=== PATIENT | female | born 1950 | race Caucasian/White ===

== ENCOUNTER 2021-11-22 04:44 | Outpatient (CLI) | payer MEDICARE, MEDICAID, SELFPAY ==
[2021-11-22] MEDS: Albuterol HFA 18 GM 200 PUFF INH IH (16:09)
[2021-11-22] MEDS: Inhaler, Assist Device 1 EACH MC (16:09)
== END 2021-11-22 04:45 | disposition home or self-care (01) ==
LOC: RT 04:44
PROVIDERS: PCP Physician Assistant Medical; Visit Provider Student in an Organized Health Care Education/Training Program
DX: J44.9 Chronic obstructive pulmonary disease, unspecified (principal); R06.09 Other forms of dyspnea; R06.2 Wheezing; Z87.01 Personal history of pneumonia (recurrent); Z87.891 Personal history of nicotine dependence; J98.4 Other disorders of lung
CPT/HCPCS: 94060; 94618; 94726; 94729

== ENCOUNTER 2021-11-22 12:36 | Emergency (ER) | payer MEDICARE, MEDICAID, SELFPAY ==
--- OUTSIDE RECORDS SUMMARY | 2021-11-22 12:45 | XMS_ITS | Encounter Summary ---
:1950 Author Care Team Providers Name Role Phone Dayana Steinerjose Primary Care Provider [phone] [facility] OTHER [phone] Katia Aaron, sole conditioner Unavailable Heber Way MD General Surgeon [phone] Pillo Carter General Surgeon [phone] Reason for Visit SLEEP CLINIC Follow-Up CPAP/BIPAP Therap y Assessment and Plan Assessment Note I provided greater than 20 minutes in th e care of this patient, more than half the time was spent in [id number] counseling. 1. Obstructive sleep apnea syndr ome Mild Obstructive Sleep Apnea s evere in REM, CPAP was tried and failed, residual hypoxemia and no optimal pressure found on CPAP; Medical history include COPD, diabetes, GERD and morbid obesity (BMI 40) 04/22/2004: PSG Mild, RDI 7/hr 2003 to 2018: cpap 10cm on outdated mach ine without apap featuer 03/22/18: order new machine AutoBIPAP Imax 16 Maurice 8 PS 4, to reflect titration sleep study results. 06/05/18: AHI reduced to 1.8/hr, there i s increased mask leak and pressure does reach max levels with residual snoring. encouraged her to change her masks more frequently. 10/10/18: tx AHI 1.7/hr, continue same pr essure. very high VS index suspected due to poor maintenance of mask/machine. she thinks her sleep quality is better than usual. encouraged her to keep changing f ilters and mask cushions to keep machine functioning optimally. asked KMP to help her with filter change. 09/24/19: tx AHI 1.4/hr, cont same pressur e, get more regular mask supplies which should improve high leak seen on last month's bipap data 04/14/21: has registered machine for reca ll. tried to not use her machine but could not sleep for 2 nights. so went back to using it. she has health concerns lois since recently had unilateral nephrectomy for suspected neoplasm. advised her to inform cashier gambling via recall phone number line that she needs expedited. we had zoom visit. unfortunately her machine is NOT connected to internet so unable to review data. asked her to bring the SD card 08/31/2021: Patient was recently hospital ized for atypical pneumonia, appears to be recovering well. Notes she has gotten her first COVID shot and is getting a second 1 soon. She actually quit smoking du e to fear of breathing issues associated with this pneumonia and I encouraged her to continue with this. Her machine data shows excellent compliance and resolution at auto BiPAP iMax 16 Maurice 8 pressure support 4 with AHI reduction of 3.2/h. I recommend continue the same pressure setting. Given recent pneumonia and last titration study being over 5 years ago, we will do a overnight oximetry with her Bi PAP therapy at home to rule out residual nocturnal hypoxemia. She also change insurances so we will ne ed to change DME company, sending prescription now for transition. 10/20/2021: Patient is still working on [employer] a [employer] that is in network with her new insurance. She is using [facility] but there telling her that she needs a jzyz-st-duod visit. Which we are doing today. She continues to use and benefit her machine, but she does need a new machine replacement. She is not able to use her mask because it is in such poor shape, so I gave her a AirFit F20 small to try at home. current mask: mirage quattro small ffm masks tried: airfit f20 medium ? noninvasive ear or pulse o ximetry by continuous overnight monitoring (PROC) - PLEASE FAX THIS TO AGAT[facility] TSANG ON [place] [x] Obtain overnight oximetry on Auto bipap imax 16 maurice 8 ps 4cm and ROOM AIR ? auto-Pap equipment ? sleep apnea: care instruct ions 2. Periodic limb movement disord er Periodic Limb Movement Disord er: elevated PLMA index at bipap titration study in 09/12/2015, but coincided with GI bleed at that time. ? RLS vs. peripheral neuropathy. Vit 12 on low end of n ormal at 429 01/2018 and Ferritin improve d from 8 in 12/2017 to 38ng/mlg 01/201803/22/18: monitor after starting bipap 06/05/18: she does not complain of this per se, but I do notice pattern of on/off bipap usage throughout night suggesting sleep fragmentation. she is also having iron replacement therapy, managed via he r PCP. will treat leg cramps with Magnes ium to see if it helps also. : does not move her legs much per her roommate. no restless legs currently. able to stretch her muscles. 09/24/19: using counter pressure (machine) for legs (from catalog for restless legs) massages her legs and it helps. she has very bad leg cramps and low Mag at 1.5 about a year ago, advised her to re-star t Magnesium. She also wants to try gabap entin, which is reasonable given her comorbid neuropathy. Cr at 0.7. no renal adjustment. discussed common side efx, expected time to see benefit, and titration plan. 12/09/19: no side efx w/ gabapentin 100mg bid, some benefit to her leg pains/restlessness. will inc to 200mg bid, with short interval follow up 2 weeks. 04/14/21: decided to stop gabapentin poli she didnt want to take so many pills and worried they may be making her drowsy. she does get restless sleep currently while sleeping but would not want to go on it. 3. Psychophysiologic insomnia multifactorial, pcp put her on zolpidem 10mg PRN. she takes this intermittently. also lifestyle/variable schedules. she is trying to exercise/walk more during day which helps. also the variabl e schedule works for her okay, she does not work. 06/05/18: continue to monitor. avg 7h2m on bipap and she has no complaints of worsening insomnia. 10/10/18: avg 7h25m on bipap and reports no issues falling asleep, waking up 2 to 3 times most nights, which is better than her previous, sleeping longer, also sleeping in afternoon 2 to 3 hours. 09/24/19: avg 8h44m tho wakes up to urinat e 2 to 3 times. only napping very occ now, was doing more regular before. she gets zolpidem uses PRN, rx'ed by PCP 04/14/21: she had insomnia when trying to be off bipap due to recall but doing better on bipap machine. she does use zolpidem rx'ed by her pcp 4. Cramp in lower limb associate d with sleep 06/05/18: start mg gluconate 5 00mg 1 to 2 times daily for leg/muscle cramps. d/w side efx including diarrhea. 10/10/18: got the runs on 1 tab in evenin g, will reduce to 1/2 tab in evenning, as taking Mg did help with her muscle cramps, just couldnt tolerate side efx 09/24/19: Mg low but she is not willing to take supplements, will restart as above. think RLS is partly due to mvmt from cramps. 04/14/21: unclear if she ever tried the m agnesium after last time but she doesnt want to be on it. 08/31/21: She does have low magnesium fro m the 2018 blood work and has not had follow-up on this since. She did not want to be on p.o. magnesium when I had offered this to her. She does have a follow-up with her primary care practitioner and i t does appear that magnesium is one of the issues that will be addressed. 5. Smoker 08/31/2021: Last cig on 021 right before going to hospital for pna. has not had cig since! when she gets craving she will distract herself I encourage patient to continue abstaini ng from smoking. She is very motivated. She did not express wanting nicotine replacements or any medications to help. She has good social support to do this. Discussion Note Remember to always take precautio ns on drowsy driving. If you experience sleepiness while driving, find a safe area to frame pulley mortising machine operator and take a break. Research suggests taking a power nap (15 to 20 mukesh clark) and/or coffee (or caffeine containi ng food such as dark chocolate) may be effective aides. As always, you should use your judgement on whether to drive at all, if you are sleep deprived or feeling sleepy. Thank you for the kind opportunity to pa rticipate in your medical care. You expressed good understanding of your diagnosis and treatment, and agreed to proceed with the plan we discussed together. If yo u have any questions or concerns prior t o your next appointment, please call Sleep Clinic. Plan of Care Patient Instructions 1 year follow up, sooner if needed Reminders Provider Appointments Follow up 40 12/13/2021 Me roberto carlos Whaley 1:40PM SANTI Garcia ? Return to on or around Jeffery Webster MD, Office 08/31/2022 Board Certified Sleep Physician Lab None ? ? recorded. Referral None ? ? recorded. Procedures Noninvasive 10/20/2021 [facility] Ear or Pulse Oximetry by Continuous Overnight Monitoring (PROC) Surgeries None ? ? recorded. Imaging None ? ? recorded. Medications Name Start Date ? ? albuterol sulfate HFA 90 mcg/actuation aerosol inhaler ? Inhale 2 puffs every 4 hours by inhalation route as n eeded for 30 days. Ambien 10 mg tablet ? Take 1 tablet every day by oral route at bedtime for 90 days. Aspirin Low Dose 81 mg tablet,delayed release 08/18/20 21 Take 1 tablet every day by oral route. clotrimazole 1 % topical cream 08/18/2021 1 application twice a day by topical route as needed . Diflucan 200 mg tablet ? Take 1 tablet every day by oral route as needed for 3 days. Doxycycline 100 mg capsule ? Take 1 capsule twice a day by oral route for 5 days. FreeStyle Lite Strips ? Take 1 strip 3 times a day by miscell. route. garlic 1,000 mg capsule 08/18/2021 Take 1 capsule every day by oral route. Humalog KwikPen (U-100) Insulin 100 unit/mL subcutaneo us ? Inject 30 units 3 times a day by subcutaneous route f or 30 days. Jardiance 10 mg tablet ? Take 1 tablet every day by oral route for 90 days. levothyroxine 175 mcg tablet 08/18/2021 1 tablet every day by oral route. Monistat 7 2 % vaginal cream ? Insert 1 applicatorful every day by vaginal route for 7 days. mupirocin calcium 2 % topical cream 08/18/2021 Apply 1 application 3 times a day by topical route. Narcan 4 mg/actuation nasal spray 08/18/2021 Take 1 spray as needed by nasal route. Nexium 40 mg capsule,delayed release 08/18/2021 1 capsule every day by oral route. oxycodone-acetaminophen 5 mg-325 mg tablet ? Take 2 tablets 3 times a day by oral route for 28 day s. prednisone 20 mg tablet 12/17/2021 Take 2 tablets every day by oral route for 5 days. Premarin 0.625 mg/gram vaginal cream ? Rub small amount onto vulva Q other day prn. Stiolto Respimat 2.5 mcg-2.5 mcg/actuation solution fo r inhalation 12/17/2021 Inhale 2 puffs every day by inhalation route. Tresiba FlexTouch U-200 insulin 200 unit/mL (3 mL) sub cutaneous pen 10/21/2021 Inject 130 units every day by subcutaneous route for 30 days. Notes: [facility] rec [facility] 08/10/2021 Rena Thompson, binduD Medications Administered None recorded. Vitals Height 5 ft 3 in Results Lab Results None recorded. Allergies Code Code System Name Reaction Severity Onset 847824 RxNorm Bactrim Rash Moderate 03/14/2019 Sulfa (Sulfonamide Itching Mild 2021 Antibiotics) Penicillins Dizziness ? ? ? Nausea ? ? Problems Name Status Onset Date Source ? Type II Diabetes Mellitus Uncontrolled Active 9 ? 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 Diabetes Mellitus Impairment of Balance Active 03/10/2020 ? Upper Gastrointestinal Bleeding Active 04/08/2020 ? Computed Tomography Result Abnormal Active 08/03/2020 ? Hydroureteronephrosis Active 08/09/2020 ? Hypertensive Disorder Active 08/30/2020 ? Stabbing Pain Active 10/02/2020 ? Total Excision of Left Kidney Active 10/29/2020 ? Left Oophorectomy Active 10/29/2020 ? Primary Malignant Neoplasm of Renal Active 11/05/2020 ? 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 Gastroesophageal Reflux Disease without Active 06/01/20 21 ? Esophagitis Insomnia Active 08/18/2021 ? Spasm Active 08/26/2021 ? Dyspnea on Exertion Active 09/20/2021 ? Hypothyroidism Active ? History Vitamin B Deficiency Active ? History Hyperlipidemia Active ? History Severe Obesity Active ? History Nicotine Dependence Active ? History Psychophysiologic Insomnia Active ? Histo ry Obstructive Sleep Apnea Syndrome Active ? History Periodic Limb Movement Disorder Active ? History Chronic Obstructive Lung Disease Active ? History Kidney Stone Active ? History Shoulder Joint Pain Active ? History Low Back Pain Active ? History Generalized Aches and Pains Active ? Hist ory Procedures Date Name Performed by ? 10/19/2020 Ureterectomy Information not avai lable Notes: Per [facility] [place]- left nephro ure terectomy 01/04/2017 Colonoscopy Information not avai lable 08/21/1973 Tubal Ligation Information not avai lable Notes: stent placements December 08 partial hysterectomy in 2001, ovaries le ft in place, uterus and cervix removed. Vaccine List Vaccine Type COVID-19, mRNA, LNP-S, PF, 100 mcg/0.5 m L dose (Moderna) 08/11/2021 09/08/2021?0.5 mL pneumococcal conjugate PCV 13 07/04/2019?0.5 mL pneumococcal polysaccharide PPV23 09/17/2012 06/23/2014 Social History Tobacco Smoking Status Former Smoker Notes: quit Are you currently employed? N Have you used IV drugs? N Are you blind or do you have N Notes: r eading glasses, eye difficulty seeing? exam 01/28/20 diabetic retinopathy noted at exam Do you have smoke and carbon Y monoxide detectors in your home? What is your code status? 0 In the 14 days before symptom N onset, have you had close contact with a person who is under investigation for COVID-19 while that person was ill? How much tobacco do you chew? none What was the date of your most 11/10/2021 recent tobacco screening? Do you have an advanced Y directive? Do you feel safe at home? Y Do you use any illicit or N recreational drugs? How many years have you smoked 55 tobacco? In the 14 days before symptom N onset, have you had close contact with a laboratory-confirmed COVID-19 while that case was ill? What is your level of alcohol None consumption? Live alone or with others? with others Did the fall result in an injury? N Animal exposure? Y Notes: dog Do you have any pets? N Have you been to an area known to N be high risk for COVID-19? Language Difficulties No What is your current pack years? 30ormorepackyears Are you deaf or do you have N serious difficulty hearing? Are you passively exposed to N smoke? Hard of hearing or deaf in one or N both ears? Do you or have you ever used any N other forms of tobacco or nicotine? What is your level of caffeine Moderate Notes: 2-3 cups coffee consumption? daily, 1 can soda Have you recently traveled N abroad? Are there any guns present in N your home? Have you fallen in the last 3 N months? Family History Relation Problem Onset Age of Age Notes Father Diabetes mellitus (No Information) N/A (No No clark) Father Kidney stone (No Information) N/A He had the m all the time. Mother Diabetes mellitus (No Information) N/A (No No clark) Sister Diabetes mellitus (No Information) N/A (No No clark) Sister Kidney stone (No Information) N/A x 1 Brother Diabetes mellitus (No Information) N/A (No No clark) Son Kidney stone (No Information) N/A several ove r winter 9 Functional Status No Impairment. Past Encounters 10/20/2021 Obstructive Sleep Apnea Syndrome; Period ic Limb Movement Disorder; Psychophysiologic Insomnia; Cramp in Lower Limb Associated with Sleep; Smoker Jeffery Webster MD, Board Certified Sleep Ph ysician: [address] [place] [phone], Ph. 10/18/2021 Hypoglycemia Unawareness Due to Type 2 D iabetes Mellitus; Chronic Obstructive Lung Disease; Type II Diabetes Mellitus Uncontrolled; Candidiasis of Vagina; Atrophic Vaginitis DARYL KellyC: [address] [place] [phone], Ph. History of Present Illness Note: <p>Renee Mendez is a pleasant 71-year-old woman with obstructive sleep apnea, obesity, COPD, diabetes, GERD and morbid obesity who presents for bipap machine follow up.</p><div>
</div><p><strong>PREVIOUS SLEEP EVALUATION: </strong></p><p>Diagnostic polysomnogram on May 12, 2004 revealed mild obstructive sleep apnea with RDI: 7/hr., REM related RDI: 34/hr., Ghassan oxygen saturation 68% on room air (with 14% of sleep study below SPO2 90%). Patient presented for reevaluation on May 28, 2015 where she reported that she has beenusing CPAP 8 cm/H2O. She has never had a titration sleep study but she did report difficulties with frequently disrupted nocturnal sleep and feels her sleep quality is extremely poor overall. Consequently I recommend she undergo a titration polysomnogram which was performed May 28, 2015. Titration was performed from CPAP 5 to 14 cm/H2O. Unfortunately no optimal pressure was observed for the treatment of MARY ANN in supine position including in non-REM and REM sleep. CPAP 5-8 cm/H2O adequately resolvedher MARY ANN in lateral position with good oxygen saturation in non-REM sleep. CPAP 13 cm/H2O partially resolved MARY ANN in lateral REM sleep. Higher pressures (CPAP greater than 8 cm/H2O) were associated with numerous hypopneas. Mask leak was significant. She was also observed to have nocturnal hypoxemia withnadir oxygen saturation of 79% on room (18.3 minutes with oxygen saturation below 88%).</p><div>
</div><p>Patient was seen on 07/30/2015, with plan to switch to BIPAP due to persistent CPAP difficulties. BIPAP Titration Polysomnogram on 09/12/2015 (wt 225 lbs/bmi 38.6) s howed best tested pressure at BIPAP 14/10cm which reduced AHI to 2.7/hr with adequate oxygenation maintained. Lateral NREM and REM, and supine NREM were observed at this pressure. Nocturnal hypxemia observed with CPAP has resolved with BIPAP therapy. Arousal index 15/hr. PLM index 21.7/hr. PLM Arousalindex 7.4/hr. No significant arrhythmias, Abner-Hamilton Respirations, parasomnias, or abnormalities on limited EEG montage.</p><div>
</div><p>Patient was then lost to follow-up after cancelling appointments, had not gone over results of BiPAP titration.</p><div>
</div><p>On 12/28/17, ordered new bipap machine Auto BIPAP Imax 16, Maurice 8,PS 4cm, however patient was not due for machine yet until Feb 2018, so unable to obtain then.</p><div>
</div><p>Finally visit on 03/22/18, machine order for auto bipap imax 16 maurice 8 ps 4cm was made again to [facility]. Last visit on 06/05/18, she was doing well with her new machine, but having trouble with supplies and changing filters and I showed her how to do this.</p&gt ;<div>
</div><p><strong>TODAY: On auto bipap imax 16 maurice 8 ps 4cmh2O via mirage quattro small full face mask </strong></p><p>see A&P for detai ls</p><div>
</div><div>Patient switched insurances has not been able to get supplies from [facility] since. She was not aware to change her insurance with a cane, and did not know that [facility] likely does not take her current insurance [employer]</div><div>We did sendthe CPAP new machine order [facility], they called patient to tell her that she is not in network with them. Then her orders were sent to [facility] but they said that they needed a [id number] visit again. </div>Review of Systems: ROS as noted in the HPI Review of Systems None recorded. Physical Exam ? Notes: <p>GENERAL: </p><div>{{chron ically ill appearing well appearing#}}, appearing {{older than younger than st ated#}} age, no acute distress, {{normal tall lean obese#}} build</div><div>HEENT: atraumatic skull, anicteric</div><div>RESPIRAT ORY: quiet respiration, able to speak in full sentences without dyspnea, n o accessory muscle use,</div><div>SKIN: no facial skin rash, no facial skin le sions</div><div>PSYCHIATRIC: well groomed, fluent speech, good insight, linear thought process, good eye contact, {{flat balanced#}} affect</d iv><div>NEUROLOGIC: alert, oriented, symmetric facial expression</div><div> BP: measured several times, as above</div><div>
</div><d iv>
</div><p><strong>Clinical Data Reviewed:</strong></p><div>< br></div><p>1. </p><div>{{Modified Pediatric [place] Sleepiness Scale Epw orth Sleepiness Scale*}}: 2 out of {{21 due to not driving 24#}}.</div><div>
</div><div>2. {{Sleep study results not available, requested Unable to obtain sleep study reports No sleep study reports Sleep study results as above.#}}</div><div>
</div><div>3. Machine Download Data:</div><div>{{R esmed AirSense 10 Auto CPAP Resmed AirSense 10 Auto BIPAP Respironics Dream station Auto CPAP Respironics Dreamstation Auto BIPAP*}}</div><div>PAP Se ttings: {{Auto BIPAP* CPAP BIPAP}} imax 16 maurice 8 ps 4 CmH2O</div><div>Date Ra nge: {{DATE 08/01/2021}} to {{DATE 08/30/2021}}</div><di v><strong>Days with Usage >=4 hours: </strong>{{Over 70 100*}}<st william> %</strong></div><div><strong>Avg Usage per Day Used: </strong>{{1 2 3 4 5 6 7* 8 9 10}}<strong> Hours </strong>{{0 1#}}<strong> Minutes</strong></div><div>Mean/Median Pressure: {{number___ n/a#}} cmh2O</di v><div>90th-tile/95th-tile Pressure: {{number___ 15.5/11.5#}} cmH 2O</div><div>{{Median-90th%tile Leak: Leak: Avg Time in Large Leak Daily- #} } {{Not significant Significant leak 34 minutes#}}</div><div><strong >Average AHI: </strong>{{enter 3.2#}}<strong> per hour</strong></div><div>{{No rmal flow limitation index. * Abnormal flow limitation index.}}</div><di v>{{Normal vibratory snore index. Abnormal vibratory snore index. Abnor mal vibratory snore index. elevated 35/hr, historically been high#}}</d iv><div>{{Daily details do not show significant periods at maximum pressure* Daily details shows significant periods at maximum pressure}}</div><div >
</div><div>4. {{Lab results as outlined. * Labs pending.}}. noted for low Mg at 1.5 in 10/2018. </div>
--- OUTSIDE RECORDS SUMMARY | 2021-11-22 12:45 | XMS_ITS | Encounter Summary ---
:1950 Author Care Team Providers Name Role Phone Dayana Steinerchristianaaaron Primary Care Provider [phone] [facility] OTHER [phone] Katia Aaron, retail sales vitamin consultant Unavailable Heber Way MD General Surgeon [phone] Pillo Carter General Surgeon [phone] Reason for Visit Hypoglycemia unawareness due to type 2 d iabetes mellitus; Chronic obstructive lung disease Assessment and Plan 1. Hypoglycemia unawareness due to type 2 diabetes mellitus 10/18/2021 Unchanged. Add in Ja rdiance at starting dose. We will monitor to see if she can tolerate this. 09/20/2021 Improved. Discussed. 2. Chronic obstructive lung dise ase 10/18/2021 Unchanged. To see [facility] Pulmonolgist. To see Integrated Marketing Intern per [facility] Hospitalist . Referral sent. Recent pneumonia. 3. Type II diabetes mellitus unc ontrolled 12/04/2019 She agrees to get her labs dra ellis before Mar 2020. She is scared of blood draws. ratio microalb/creat in 2018 was 92.8. Creat and BUN were normal in Jun 2019. A1C was 8.3: discussed hypoglycemia at the 12/04/2019 visit. 12/04/2019 DISCUSSED avoidance of HYPOGLY CEMIA. 09/30/2020 A1c was 9.1 Discussed diet. Discussed compliance with meds. 03/23/2021 Worsening. Taking Tresiba 120 u nits daily, Humalog sliding scale TID, 03/22/2021 No FBS and no hypoglycemia. 2 hour brenda: None. She takes it about 1 hour after rarely and the numbers are about 20 0 then. Encouraged patient to get her la bs that were ordered in December 2020 and November 2020. Encouraged her to exercise with her arms at least and pay attention to her carbs. 08/26/2020 Improving after hospitalization . She has been doing fairly well on the Humalog sliding scale, but [facility] worries that she will give up with the intensity. Patient agrees to see if 2 hour p ost prandials look good if she covers ea ch meal at Humalog 18 units. The Tresiba U-200 at 60 units is holdin g her FBS nicely without hypoglycemia. We will discuss all of these glucose readings soon. She knows that she could have a system like [facility] but she dec lines. Our nurse senior case manager will anne kinney with her. This chart says Jul 2020 was last a1C. This patient has refused labs often. We will get this at next visit here if she will allow. This patient needs a MAGNESIUM level at next draw. 09/20/2021 Worsening. Patient has been in creasing her Tresiba from 70 to 120 units the last 8 days. She also went from 18 units to 30 units on Humalog. FBS still 200-250; post prandials are about 260 - 290 usually. Refused blood draw. 10/18/2021 Unchanged. Add in Jardiance at starting dose. We will monitor to see if she can tolerate this. ? empagliflozin 10 mg tablet 4. Candidiasis of vagina 10/18/2021 New problem, but rec urrent. Treated with cream and Diflucan pill. ? Diflucan 200 mg tablet 5. Atrophic vaginitis 10/18/2021 Worsening. Try the P remarin Cream q o HS prn. ? Premarin 0.625 mg/gram vag inal cream Discussion Note: None recorded.Patient educational handouts: No information available. Plan of Care Reminders Provider Appointments Follow up 12/13/2021 Dayana Garcia, 40 1:40PM SANTI ? Return to on or around Jeffery Webster MD, Office 08/31/2022 Board Certified Sleep Physician Lab None ? ? recorded. Referral None ? ? recorded. Procedures None ? ? recorded. Surgeries None ? ? recorded. Imaging None [...] with [facility] 08/10/2021 Rena Thompson, pharmD Medications Administered None recorded. Vitals Height Weight BMI Blood Pressure 5 ft 3 in 257 lbs 2 oz 45.5 kg/m2 126/78 mm[Hg] Results Lab Results None recorded. Allergies Code Code System Name Reaction Severity Onset 240330 RxNorm Bactrim Rash Moderate 03/14/2019 Sulfa (Sulfonamide [...] Ureterectomy Information not avai lable Notes: Per [facility] note- left nephro ure terectomy 01/04/2017 Colonoscopy Information not avai lable 08/21/1973 Tubal Ligation Information not avai lable 09/20/2021 US, Echocardiogram, Transthoracic, [facility] (Internal) Complete [address] [place] [address] (Work Place) Notes: stent placements December 08 partial hysterectomy [...] 9 Functional Status No Impairment. Past Encounters 10/18/2021 Hypoglycemia Unawareness Due to Type 2 D iabetes Mellitus; Chronic Obstructive Lung Disease; Type II Diabetes Mellitus Uncontrolled; Candidiasis of Vagina; Atrophic Vaginitis Dayana Garcia PA-C: [address] [place] [phone], Ph. 09/20/2021 Type II Diabetes Mellitus Uncontrolled; Hypoglycemia Unawareness Due to Type 2 Diabetes Mellitus; Chronic Obstructive Lung Disease; Dyspnea on Exertion; Low Back Pain Dayana Garcia PA-C: [address] [place] [address], Ph. History of Present Illness Note: <div>10/18/21: patient here for a follow up for Diabetes. Patient states is not checking her blood sugars in the mornings as directed. Patient does once or twice weekly ranging from 219-240. </div><div>Patient currently administering Humalog 30 units 3 times daily & Tresiba 120 units daily.</div><div>Patient her for follow up COPD. Patient very short of breath just walking from scales to room 1. </div><div>Patient utilizing inhalers: Albuterol 90mcg and Incruse 62.5 mg.</div><div>Patient complaining of vaginal itching would like a refill on her fluconazole 200 mg tablet.</div><div>The vaginal candidiasis started last Monday and has been persistent since.</div><div>Patient has a open sore on the left lateral side of the breast would like the provider to exam.</div> Review of Systems None recorded. Physical Exam ? Comprehensive PE (female) Reported By: Patient Constitutional: General Appearance: morbidly obese. Level of Distress: no apparent distress. Ambulation: limite d ambulation Neck: Neck: trachea midline. Thyro id: symmetrical, non-tender Respiratory: Respiratory effort: dyspneic . RUL Auscultation: breath sounds normal, good air movement, c lear to auscultation except as noted. RLL Auscultation: breath branden nds normal, good air movement, clear to auscultation except as noted . ROSEMARY Auscultation: breath sounds normal, good air movement, c lear to auscultation except as noted. LLL Auscultation: breath branden nds normal, good air movement, clear to auscultation except as noted Cardiovascular: Heart Auscultation: regular rate and rhythm (RRR) Gastrointestinal: Bowel Sounds: LLQ bowel soun ds normal, LUQ bowel sounds normal, RUQ bowel sounds normal, RLQ bow el sounds normal. Inspection and Palpation: LLQ tenderness; 1 09/30/2019 INSTRUMENT DESIGNER: no tenderness, no masses on exam 07/30/2020 an d this correlates to the recent CT done at [facility] ER. + hydroureterone phrosis Female : External genitalia: ; dry an d somewhat shiny labia. No lichen sclerosis noted. Minimal va ginal discharge noted. 10/18/2021 Patient left today with some Diflucan 200 mg, especially as we added in generic Jardiance a s a trial to get her insulins lower Musculoskeletal:: Gait and Station: irregular gait. Joints, Bones, and Muscles: bony deformity, tenderness Neurologic: Mental Status: ; 09/20/[address] cigarettes 10 days ago.Strident in her opposition to having her blood drawn. She refused MRI with contrast on 03/10/2020 alcira segal we wanted to check her creatinine prior to the MRI with contra st.07/30/2020 Recently at [facility] for left LQ abd - pelvic pain. BMP w as good but A1C remains very high. Sensation: grossly intact Psychiatric: Insight: poor insight; 06/02 Patient in the end did not want to make out a COLST. Explai elana that patient should tell all of her children about her wishes to not be intubated on a ventilator for any length of time and to no t have CPR or defibrillation. Discussed her tobacco depend ence. Discussed that she would have to allow CT Lung with IV contra st to fully work up any + on screening Low Dose CT Lung checks. Merle segal eventually decided that she would screen her lungs and allow w orkup of any positive findings. She would not get an MRI with co ntrast for BRAIN to check on her balance problems. Mental Sta tus: anxious Notes: <p>
</p>
--- OUTSIDE RECORDS SUMMARY | 2021-11-22 12:45 | XMS_ITS ---
:1950 Author Care Team Providers Name Role Phone [facility] OTHER [phone] MD General Surgeon [phone] LATRICIA GOLDBERG RN Care Manager Unavailable ZOYA GARCIA Primary Care Provider [phone] CJ CARTER General Surgeon [phone] Allergies Code Code System Name Reaction Severity Status Onset 341707 RxNorm Bactrim Rash Moderate Active 9 Sulfa Itching Mild Active (Sulfonamide 2 Antibiotics) Penicillins Dizziness ? Active ? ? Nausea ? Active ? Medications Name Status Start Date Stop Date ? ? albuterol sulfate HFA 90 mcg/actuation aerosol inhaler Active ? Not available Inhale 2 puffs every 4 hours by inhalation route as needed for 30 days. Ambien 10 mg tablet Active ? Not availabl e Take 1 tablet every day by oral route at bedtime for 90 days. Ambien 5 mg tablet Completed 11/18/2013 06/07/2016 1 (one) Tablet Tablet: hs PRN Aspir-81 Completed ? 05/29/2018 take 1 tablet per day aspirin 81 mg chewable tablet Completed ? Chew 1 tablet every day by oral route. Aspirin Low Dose 81 mg tablet,delayed release Active Not available Take 1 tablet every day by oral route. Aspirin Low Strength 81 mg chewable tablet Completed ? 05/29/2018 Chew 1 tablet every day by oral route. atorvastatin 80 mg tablet Completed 11/18/20132015 Take by oral route. azithromycin 250 mg tablet Completed ? 08/18 TAKE 1 TABLET (250 MG) BY ORAL ROUTE ONCE DAILY FOR 4 DAYS baclofen 10 mg tablet Completed ? 03/17/2020 benzoyl peroxide 2.5 % topical gel Completed ? 06/03/2020 BPO 6 % towelette Completed ? 09/30/2020 WASH THE AFFECTED AREA(S) BY TOPICAL RO JOSH ONCE DAILY for 90 days with supply of 100 cefpodoxime 100 mg tablet Completed ? 2017 cefpodoxime 200 mg tablet Completed ? 2021 Take 1 tablet twice a day by oral route for 5 days. cefuroxime axetil 500 mg tablet Active ? Not available cephalexin 500 mg capsule Completed ? 2019 ciprofloxacin 250 mg tablet Completed ? 03/21 ciprofloxacin 500 mg tablet Completed ? 06/21 clotrimazole 1 % topical cream Active 08/18/2021 N ot available 1 application twice a day by topical route as needed. clotrimazole 1 % vaginal cream Completed ? 0 09/20/2021 1 APPLICATORFUL INTO THE VAGINA ONCE A DAY FOR 3 DAYS Colace 100 mg capsule Completed ? 01/12/2021 Take 1 capsule twice a day by oral route as needed. cyanocobalamin (vit B-12) 100 mcg tablet Completed ? 06/15/2021 Take 1 tablet every day by oral route. Diflucan 100 mg tablet Completed 12/11/2006 7 Diflucan 200 mg tablet Active ? Not avail able Take 1 tablet every day by oral route as needed for 3 days. Doxycycline 100 mg capsule Active ? Not a vailable Take 1 capsule twice a day by oral route for 5 days. doxycycline hyclate 100 mg tablet Completed ? 06/15/2021 Take 1 tablet twice a day by oral route for 10 days. duloxetine 30 mg capsule,delayed Completed ? 03/17/2020 release Enablex 15 mg tablet,extended release Completed 07/04/2006 10/09/2006 1 (one) Tablet ER 24HR: daily ferrous sulfate 325 mg (65 mg Completed ? iron) tablet,delayed release fluconazole 150 mg tablet Completed ? 2020 FreeStyle Lancets 28 gauge Completed ? 11/06 FreeStyle Test strips Active 08/18/2021 Not availa ble Take 1 strip 3 times a day by miscell. route. furosemide 20 mg tablet Completed ? 06/15/20 21 Take 1 tablet every day by oral route for 30 days. gabapentin 100 mg capsule Completed ? 2019 gabapentin 300 mg capsule Completed ? 2019 garlic 1,000 mg capsule Active 08/18/2021 Not avai lable Take 1 capsule every day by oral route. glyburide 5 mg tablet Completed 09/06/2006 09/26/2011 1 (one) Tablet: Twice daily Humalog KwikPen (U-100) Insulin 100 unit/mL subcutaneous Active ? Not available Inject 30 units 3 times a day by subcutaneous route for 30 days . Humalog U-100 Insulin 100 unit/mL subcutaneous solution Complete d ? 12/08/2020 140-159=2 -695=1 -267=7 [id number] -869=07 [id number] [id number]=35 -522=20 units>300=18 units and notify hydrochlorothiazide 25 mg tablet Completed 11/28/2006 11/18/2013 1 (one) Tablet: daily Imodium A-D 2 mg tablet Completed ? 01/13/20 21 TAKE 2 TABLETS (4 MG) BY ORAL ROUTE AFT ER 1ST LOOSE STOOL AND 1 TABLET (2 MG) AFTER EACH NEXT BOWEL MOVEMENT; UP TO 3 TIMES DAILY Incruse Ellipta 62.5 mcg/actuation powder for inhalation Complet ed 08/18/2021 11/19/2021 Inhale 1 puff every day by inhalation route. ipratropium 0.5 mg-albuterol 3 mg (2.5 mg base)/3 mL n ebulization soln Completed 08/18/2021 09/20/2021 Inhale 3 mL every 4 hours by nebulization route as needed for 3 0 days. Jardiance 10 mg tablet Active ? Not avail able Take 1 tablet every day by oral route for 90 days. Levaquin 750 mg tablet Completed ? 2 Take 1 tablet every day by oral route for 5 days. Levemir FlexTouch U-100 Insulin Completed ? 07/15/2019 100 unit/mL (3 mL) subcutaneous pen Levemir U-100 Insulin 100 unit/mL subcutaneous solution Complete d 11/18/2013 06/07/2016 70 units Solution Solution: qd - daily levothyroxine 125 mcg tablet Completed ? 05/2021 TAKE ONE TABLET BY MOUTH EVERY DAY levothyroxine 137 mcg tablet Completed ? Take 1 tablet every day by oral route. levothyroxine 150 mcg tablet Completed ? levothyroxine 175 mcg tablet Active 08/18/2021 Not available 1 tablet every day by oral route. lidocaine 5 % topical patch Completed 11/19/201810/19 Apply 1 patch by topical route as needed for 60 days. lisinopril 10 mg tablet Completed ? 03/17/20 20 lisinopril 5 mg tablet Completed ? 8 magnesium 250 mg tablet Completed ? 11/14/19 20 Take 1 tablet twice a day by oral route in the evening for 90 d ays. magnesium gluconate 27 mg magnesium (500 mg) tablet Completed ? 03/17/2020 Take 1/2 tablet by mouth twice daily. metformin 1,000 mg tablet Completed ? 2019 metronidazole 500 mg tablet Completed ? 03/22 Miralax 17 gram/dose oral powder Completed 08/18/2021 08/26/2021 Take 17 g every day by oral route as needed. Monistat 7 2 % vaginal cream Active ? Not available Insert 1 applicatorful every day by vaginal route for 7 days. Mucinex 600 mg tablet, extended release Completed ? 11/06/2020 Take 1 tablet every 12 hours by oral route for 14 days. mupirocin Completed ? 08/18/2021 mupirocin 2 % topical ointment Completed 06/08/2021 1 APPLY A SMALL AMOUNT TO THE AFFECTED AREA BY TOPICAL ROUTE 3 TI MES PER DAY mupirocin calcium 2 % topical cream Active 08/18/2021 Not available Apply 1 application 3 times a day by topical route. Narcan 4 mg/actuation nasal spray Active 08/18/2021 Not available Take 1 spray as needed by nasal route. Nexium 40 mg capsule,delayed release Active 08/18/2021 Not available 1 capsule every day by oral route. nicotine 21 mg/24 hr daily Active ? Not a vailable transdermal patch nitrofurantoin 100 mg tablet Completed 11/19/201806/2019 Take 1 tablet twice a day by oral route. nitrofurantoin Completed ? 07/04/2019 monohydrate/macrocrystals 100 mg capsule Novolog Flexpen U-100 Insulin aspart 100 unit/mL (3 mL) subc utaneous Completed ? 05/05/2021 Inject 30 units 3 times a day by subcutaneous route for 30 days . nystatin 100,000 unit/gram topical cream Completed ? 08/18/2021 APPLY TO THE AFFECTED AREA BID prn Nystop 100,000 unit/gram topical Completed ? 04/09/2018 powder oxybutynin chloride 5 mg tablet Completed ? 09/24/2019 Take 1 tablet every day by oral route for 10 days. oxycodone 5 mg tablet Completed ? 11/18/2020 Take 1 tablet every 6 hours by oral route as needed. oxycodone-acetaminophen 5 mg-325 mg tablet Active ? Not available Take 2 tablets 3 times a day by oral route for 28 days. prednisone 10 mg tablet Completed ? 09/20/19 22 Take 6 tablets every day by oral route as directed for 18 days. prednisone 20 mg tablet Active ? Not avai lable Premarin 0.625 mg/gram vaginal cream Active ? Not available Rub small amount onto vulva Q other day prn. rosuvastatin 40 mg tablet Completed ? 2019 simvastatin 40 mg tablet Completed 06/20/2006 014 1 (one) Tablet: at bedtime Stiolto Respimat 2.5 mcg-2.5 mcg/actuation solution for inha lation Active 12/17/2021 Not available Inhale 2 puffs every day by inhalation route. sulfamethoxazole 800 Completed ? 04/02/2019 mg-trimethoprim 160 mg tablet tamsulosin 0.4 mg capsule Completed ? 2019 terconazole 0.4 % vaginal cream Completed ? 04/09/2018 terconazole 0.8 % vaginal cream Completed ? 07/04/2019 Tresiba FlexTouch U-200 insulin 200 unit/mL (3 mL) subcutane ous pen Active 10/21/2021 Not available Inject 130 units every day by subcutaneous route for 30 days. Tylenol 325 mg tablet Completed 08/18/2021 08/26/2021 Take 3 tablets every 6 hours by oral route as needed. Urocit-K 10 10 mEq (1,080 mg) tablet,extended release Completed 11/02/2006 09/26/2011 1 Tablet ER: BID vitamin E (dl, acetate) 180 mg (400 unit) capsule Completed 11/19/2018 02/04/2019 Take 1 capsule every day by oral route. Zetia 10 mg tablet Completed 06/20/2006 09/26/2011 1 (one) Tablet: Daily Notes: med rec completed with caroline morales 08/10/2021 Rena Thompson, binduD Problems Name Status Onset Date Source ? Blood in Urine Unknown 09/04/2018 ? Type II Diabetes Mellitus Uncontrolled Active 9 ? 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 Diabetes Mellitus Hypoglycemia Unawareness Due to Type 2 Active 0 ? Diabetes Mellitus Impairment of Balance Active 03/10/2020 ? Upper Gastrointestinal Bleeding Active 04/08/2020 ? Computed Tomography Result Abnormal Active 08/03/2020 ? Candidiasis of Skin Unknown 08/09/2020 ? Hydroureteronephrosis Active 08/09/2020 ? Hypertensive Disorder Active 08/30/2020 ? Stabbing Pain Active 10/02/2020 ? Total Excision of Left Kidney Active 10/29/2020 ? Left Oophorectomy Active 10/29/2020 ? Primary Malignant Neoplasm of Renal Active 11/05/2020 ? 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 Gastroesophageal Reflux Disease Active 06/01/2021 ? without Esophagitis Insomnia Active 08/18/2021 ? Pneumonia Unknown 08/18/2021 ? Spasm Active 08/26/2021 ? Dyspnea on Exertion Active 09/20/2021 ? Hypothyroidism Active ? History Disorder of Thyroid Gland Unknown ? Histor y Type 2 Diabetes Mellitus without Unknown ? History Complication Vitamin B Deficiency Active ? History Hyperlipidemia Active ? History Disorder of Calcium Metabolism Unknown ? H istory Severe Obesity Active ? History Nicotine Dependence Active ? History Psychophysiologic Insomnia Active ? Histo ry Obstructive Sleep Apnea Syndrome Active ? History Periodic Limb Movement Disorder Active ? History Asthma Unknown ? History Chronic Obstructive Lung Disease Active ? History Cholelithiasis without Obstruction Unknown ? History Kidney Stone Active ? History Disorder of Pigmentation Unknown ? History Localized Swelling, Mass and Lump, Unknown ? History Trunk Joint Pain Unknown ? History Shoulder Joint Pain Active ? History Low Back Pain Active ? History Generalized Aches and Pains Active ? Hist ory Increased Frequency of Urination Unknown ? History Nocturia Unknown ? History Lower Abdominal Pain Unknown ? History Urine Finding Unknown ? History Imaging of Abdomen Abnormal Unknown ? Hist ory Long-term Drug Therapy Unknown ? History Pain in Right Foot Unknown ? History Emotional State Finding Unknown ? History Finding of Esophagus Unknown ? History Disorder of Urinary Tract Unknown ? Histor y Procedure by Method Unknown ? History Specialized Medical Examination Unknown ? History Procedures Date Name Performed by ? 10/19/2020 Ureterectomy Information not giovanyai labmary kate Notes: Per [facility] note- left nephro ure terectomy 01/04/2017 Colonoscopy Information not avai lable 08/21/1973 Tubal Ligation Information not avai lable 05/03/2018 XR, Chest, 2 View [facility] Radiology (Internal) [address] [place] [id number] (Work Place) 07/11/2018 MAMMO, Screening, Tomosynthesis, [facility] Radiology (Internal) Bilateral [address] [address] (Work Place) 08/02/2018 CT, Abdomen + Pelvis, W/o Contrast [facility] Radiology (Internal) [address] [address] (Work Place) 02/04/2019 MAMMO, Diagnostic, Tomosynthesis, [facility] Radiology (Internal) Bilateral [address] [place] [address] (Work Place) 02/04/2019 US, Breast, Bilateral [facility] Radiology (Internal) [address] [place] [place] [address] (Work Place) 07/04/2019 MAMMO, Screening, Tomosynthesis, [facility] Radiology (Internal) Bilateral [address] [address] (Work Place) 07/04/2019 LDCT, Chest, for Lung Cancer [facility] Radiology (Internal) Screening [address] [address] [address] (Work Place) 02/18/2020 XR, Hand, 3 or More View [facility] Radiology (Internal) [address] [address] [address] (Work Place) 03/10/2020 MRI, Brain, W/wo Contrast [facility] Radiology (Internal) [address] [place] [id number] (Work Place) 06/02/2020 LDCT, Chest, for Lung Cancer [facility] Radiology (Internal) Screening [address] [place] [address] [address] (Work Place) 10/16/2020 XR, Cervical Spine [facility]) [address] [place] [address] (Work Place) 10/05/2020 CT, Chest, W/ Contrast [facility] Radiology (Internal) [address] [place] [address] (Work Place) 10/05/2020 XR, Cervical Spine, 4 or 5 View [facility] Radiology (Internal) [address] [place] [address] (Work Place) 01/12/2021 MAMMO, Screening, Tomosynthesis, [facility] Radiology (Internal) Bilateral [address] [place] [address] (Work Place) 09/20/2021 US, Echocardiogram, Transthoracic, [facility] Radiology (Internal) Complete [address] [place] [address] (Work Place) Notes: stent placements December 08 partial hysterectomy in 2001, ovaries le ft in place, uterus and cervix removed. Results Lab Results Date Name Specimen Result Interpretation Description Value Range Status Address ? 08/18/2021 CBC W/ BLD High Wbc 16.4 5.0-10.0 Final [facility] Auto Diff 10*3/uL 10*3/uL [facility] (Internal[facility] : [address] t ? ? BLD ? Rbc 5.09 4.10-5.30 Final [place] 10*6/uL 10*6/uL [facility] L ab (Internal) : [address] t ? ? BLD ? Hgb 13.5 g/dL 12.0-16.0 Final Nort h g/dL [facility] L ab (Internal) : [address] t ? ? BLD ? Hct 43.9 % 37.0-47.0 Final [place] % [facility] L ab (Internal) : [address] t ? ? BLD ? Mcv 86.2 fL 80.0-96.0 Final [facility] L ab (Internal) : [address] t ? ? BLD ? Mch 26.5 pg 26.0-32.0 Final [facility] L ab (Internal) : [address] t ? ? BLD Low Mchc 30.8 g/dL 31.0-35.0 Final Nort [facility] g/dL [facility] L ab (Internal) : [address] t ? ? BLD ? Rdw 14.3 % 11.5-14.5 Final [facility] L ab (Internal) : [address] t ? ? BLD ? Plt 194 10*3/uL 130-450 Final Nort h 10*3/uL [facility] L ab (Internal) : [address] t ? ? BLD ? Anc 10.95 ? Final [place] 10*3/uL [facility] L ab (Internal) : [address] t ? ? BLD ? Nlr 2.83 0.00-3.20 Final [facility] L ab (Internal) : [address] t ? ? BLD ? Neutro 66.7 % 40.0-75.0 Final [facility] L ab (Internal) : [address] t ? ? BLD ? Lymph 23.6 % 20.0-50.0 Final [facility] L ab (Internal) : [address] t ? ? BLD ? [place] 8.3 % 2.0-10.0 Final [facility] L ab (Internal) : [address] t ? ? BLD Low Eos 0.2 % 1.0-6.0 % Final [facility] L ab (Internal) : [address] t ? ? BLD ? Baso 0.2 % 0.0-1.0 % Final [facility] L ab (Internal) : [address] t ? ? BLD High Ig 1.0 % 0.0-0.9 % Final [facility] L ab (Internal) : [address] t 08/18/2021 BMP, S Low g/r 62 mg/dL 74-106 Final Nort [facility] Serum or mg/dL [facility] L ab (Internal) : [address] t ? ? S High Bun 34 mg/dL 7-18 Final [place] mg/dL [facility] L ab (Internal) : [address] t ? ? S ? Crea 1.0 mg/dL 0.6-1.0 Final [place] mg/dL [facility] L ab (Internal) : [address] t ? ? S ? Ca 8.9 mg/dL 8.5-10.1 Final [place] mg/dL [facility] L ab (Internal) : [address] t ? ? S ? Na 139 mmol/L 136-145 Final [place] mmol/L [facility] L [facility] (Internal) : [address] t ? ? S ? K 4.1 mmol/L 3.5-5.1 Final [place] mmol/L [facility] L ab (Internal) : [address] t ? ? S ? Cl 102 mmol/l 98-107 Final [place] mmol/l [facility] L ab (Internal) : [address] t ? ? S High Tco2 32.8 mmol/L 21.0-32.0 Final No rth mmol/L [facility] L [facility] (Internal) : [address] t 08/17/2021 CBC W/ BLD High Wbc 14.1 5.0-10.0 Final [facility] Auto Diff 10*3/uL 10*3/uL [facility] (Internal) : [address] t ? ? BLD ? Rbc 4.98 4.10-5.30 Final [place] 10*6/uL 10*6/uL [facility] L ab (Internal) : [address] t ? ? BLD ? Hgb 13.4 g/dL 12.0-16.0 Final Nort h g/dL [facility] L ab (Internal) : [address] t ? ? BLD ? Hct 42.9 % 37.0-47.0 Final [place] % [facility] L ab (Internal) : [address] t ? ? BLD ? Mcv 86.1 fL 80.0-96.[address] [place] [address] [facility] L ab (Internal) : [address] t ? ? BLD ? Mch 26.9 pg 26.0-32.[address] [place] [address] [facility] L ab (Internal) : [address] t ? ? BLD ? Mchc 31.2 g/dL 31.0-35.0 Final [facility] g/dL [facility] ([facility] : [address] t ? ? BLD ? Rdw 14.3 % 11.5-14.5 Final [facility] ([facility] : [address] t ? ? BLD ? Plt 221 10*3/uL 130-450 Final [facility] 10*3/uL [facility] ([facility] : [address] t 08/17/2021 BMP, S High g/r 199 mg/dL 74-106 Final [facility] Serum or mg/dL [facility] (Internal) : [address] t ? ? S High Bun 32 mg/dL 7-18 Final [place] mg/dL [facility] L ab (Internal) : [address] t ? ? S ? Crea 1.0 mg/dL 0.6-1.0 Final [facility] mg/dL [facility] ([facility] : [address] t ? ? S ? Ca 9.0 mg/dL 8.5-10.1 Final [facility] mg/dL [facility] ([facility]) : [address] t ? ? S ? Na 136 mmol/L 136-145 Final [place] mmol/L [facility] L ab (Internal) : [address] t ? ? S ? K 4.6 mmol/L 3.5-5.1 Final [facility] mmol/L [facility] (Internal) : [address] t ? ? S ? Cl 100 mmol/l 98-107 Final [place] mmol/l [facility] L ab (Internal) : [address] t ? ? S ? Tco2 31.5 mmol/L 21.0-32.0 Final No rth mmol/L [facility] L ab (Internal) : [address] 08/17/2021 Neutrophi BLD ? Anc-ma 12.28 ? Final No rth l Count, nual 10*3/uL [facility] Lab (Anc), (Internal) : Blood [address] 08/17/2021 Nlr-manua BLD High Nlr - 7.91 0.00-3.20 Final [facility] L [facility] (Internal) : [address] t 08/16/2021 CBC W/ BLD High Wbc 13.8 5.0-10.0 Final Nort [facility] Auto Diff 10*3/uL 10*3/uL [facility] (Internal) : [address] t ? ? BLD ? Rbc 5.12 4.10-5.30 Final [place] 10*6/uL 10*6/uL [facility] L ab (Internal) : [address] t ? ? BLD ? Hgb 13.6 g/dL 12.0-16.0 Final Nort h g/dL [facility] L ab (Internal) : [address] t ? ? BLD ? Hct 44.4 % 37.0-47.0 Final [facility] L ab (Internal) : [address] t ? ? BLD ? Mcv 86.7 fL 80.0-96.0 Final [facility] L ab (Internal) : [address] t ? ? BLD ? Mch 26.6 pg 26.0-32.0 Final [facility] L ab (Internal) : [address] t ? ? BLD Low Mchc 30.6 g/dL 31.0-35.0 Final Nort h g/dL [facility] L ab (Internal) : [address] t ? ? BLD ? Rdw 14.1 % 11.5-14.5 Final [facility] L ab (Internal) : [address] t ? ? BLD ? Plt 211 10*3/uL 130-450 Final Nort h 10*3/uL [facility] L ab (Internal) : [address] t 08/16/2021 BMP, S High g/r 189 mg/dL 74-106 Final [facility] th Serum or mg/dL [facility] L ab (Internal) : [address] t ? ? S High Bun 32 mg/dL 7-18 Final [place] mg/dL [facility] L ab (Internal) : [address] t ? ? S ? Crea 1.0 mg/dL 0.6-1.0 Final [place] mg/dL [facility] L ab (Internal) : [address] t ? ? S ? Ca 9.0 mg/dL 8.5-10.1 Final [place] mg/dL [facility] L ab (Internal) : [address] t ? ? S ? Na 136 mmol/L 136-145 Final [place] mmol/L [facility] L ab (Internal) : [address] t ? ? S ? K 4.6 mmol/L 3.5-5.1 Final [place] mmol/L [facility] L ab (Internal) : [address] t ? ? S ? Cl 100 mmol/l 98-107 Final [place] mmol/l [facility] L ab (Internal) : [address] t ? ? S ? Tco2 30.7 mmol/L 21.0-32.0 Final No rth mmol/L [facility] L ab (Internal) : [address] 08/16/2021 Different BLD High Polys 84 % 40-75 % Final No rth ial, [facility] Lab Blood (Internal) : [address] t ? ? BLD ? Bands 0 % 0-5 % Final [facility] L ab (Internal) : [address] t ? ? BLD Low Lymphs 8 % 20-50 % Final [facility] L ab (Internal) : [address] t ? ? BLD ? [place] 8 % 2-10 % Final [facility] L ab (Internal) : [address] t ? ? BLD ? Eos 0 % 0-6 % Final [facility] L ab (Internal) : [address] t ? ? BLD ? Baso 0 % 0-1 % Final [facility] L ab (Internal) : [address] t ? ? BLD ? Atyp 0 % ? Final [facility] L ab (Internal) : [address] t ? ? BLD ? Plts, adequate adequate Final [facility] L ab (Internal) : [address] t ? ? BLD ? RBC normal normal Final [facility] L ab (Internal) : [address] [facility] 08/16/2021 Neutrophi BLD ? Anc-ma 11.57 ? Final No rth l Count, nual 10*3/uL [facility] (Anc[facility] (Internal) : Blood [address] [facility] 08/16/2021 Nlr-manua BLD High Nlr - 10.50 0.00-3.20 Final [facility] Hospital L ab (Internal) : [address] [facility] 08/15/2021 BMP, S High g/r 201 mg/dL 74-106 Final [facility] [place] Serum or mg/dL [facility] (Internal) : [address] t ? ? S High Bun 28 mg/dL 7-18 Final [place] mg/dL [facility] L ab (Internal) : [address] t ? ? S High Crea 1.1 mg/dL 0.6-1.0 Final [place] mg/dL [facility] L ab (Internal) : [address] t ? ? S ? Ca 8.9 mg/dL 8.5-10.1 Final [place] mg/dL [facility] L ab (Internal) : [address] t ? ? S ? Na 140 mmol/L 136-145 Final [place] mmol/L [facility] L ab (Internal) : [address] t ? ? S High K 5.3 mmol/L 3.5-5.1 Final [place] mmol/L [facility] L ab (Internal) : [address] t ? ? S ? Cl 100 mmol/l 98-107 Final [place] mmol/l [facility] L ab (Internal) : [address] t ? ? S High Tco2 34.1 mmol/L 21.0-32.0 Final No rth mmol/L [facility] L ab (Internal) : [address] 08/15/2021 Different BLD High Polys 86 % 40-75 % Final No rth ial, [facility] Lab Blood (Internal) : [address] t ? ? BLD ? Bands 0 % 0-5 % Final [facility] L ab (Internal) : [address] t ? ? BLD Low Lymphs 11 % 20-50 % Final [facility] L ab (Internal) : [address] t ? ? BLD ? [place] 3 % 2-10 % Final [facility] L ab (Internal) : [address] t ? ? BLD ? Eos 0 % 0-6 % Final [facility] L ab (Internal) : [address] t ? ? BLD ? Baso 0 % 0-1 % Final [facility] [facility] : [address] t ? ? BLD ? Atyp 0 % ? Final [facility] L ab (Internal) : [address] t ? ? BLD ? Plts, adequate adequate Final [facility] L ab (Internal) : [address] t ? ? BLD ? RBC normal normal Final [facility] L ab (Internal) : [address] t 08/15/2021 Neutrophi BLD ? Anc-ma 10.39 ? Final No rth l Count, nual 10*3/uL [facility] Hospital Lab (Anc), (Internal) : Blood [address] t 08/15/2021 Nlr-manua BLD High Nlr - 7.82 0.00-3.20 Final [facility] L ab (Internal) : [address] t 08/14/2021 CBC W/ BLD High Wbc 10.9 5.0-10.0 Final Nort h Auto Diff 10*3/uL 10*3/uL [facility] L [facility] (Internal) : [address] t ? ? BLD ? Rbc 5.08 4.10-5.30 Final [place] 10*6/uL 10*6/uL [facility] L ab (Internal) : [address] t ? ? BLD ? Hgb 13.6 g/dL 12.0-16.0 Final Nort h g/dL [facility] L ab (Internal) : [address] t ? ? BLD ? Hct 43.7 % 37.0-47.0 Final [facility] : [address] t ? ? BLD ? Mcv 86.0 fL 80.0-96.0 Final [place] fL [facility] L [facility] (Internal) : [address] t ? ? BLD ? Mch 26.8 pg 26.0-32.0 Final [place] pg [facility] L [facility] (Internal) : [address] t ? ? BLD ? Mchc 31.1 g/dL 31.0-35.0 Final Nort [facility] g/dL [facility] (Internal) : [address] t ? ? BLD ? Rdw 13.9 % 11.5-14.5 Final [facility] ([facility] : [address] t ? ? BLD ? Plt 240 10*3/uL 130-450 Final Nort h 10*3/uL [facility] (Internal) : [address] 08/14/2021 BMP, S High g/r 327 mg/dL 74-106 Final [place] th Serum or mg/dL [facility] L [facility] (Internal) : [address] t ? ? S High Bun 33 mg/dL 7-18 Final [facility] mg/dL [facility] (Internal) : [address] t ? ? S High Crea 1.2 mg/dL 0.6-1.0 Final [facility] mg/dL [facility] (Internal) : [address] t ? ? S ? Ca 8.7 mg/dL 8.5-10.1 Final [facility] mg/dL [facility] (Internal) : [address] t ? ? S ? Na 136 mmol/L 136-145 Final [facility] mmol/L [facility] (Internal) : [address] t ? ? S ? K 4.6 mmol/L 3.5-5.1 Final [facility] mmol/L [facility] (Internal) : [address] t ? ? S ? Cl 99 mmol/l 98-107 Final [facility] mmol/l [facility] (Internal) : [address] t ? ? S ? Tco2 31.0 mmol/L 21.0-32.0 Final No rth mmol/L [facility] L ab (Internal) : [address] 08/14/2021 Different BLD High Polys 82 % 40-75 % Final No rth ial, [facility] Manual, Hospital Lab Blood (Internal) : [address] t ? ? BLD ? Bands 0 % 0-5 % Final [facility] L ab (Internal) : [address] ? ? BLD Low Lymphs 11 % 20-50 % Final [facility] L ab (Internal) : [address] t ? ? BLD ? [place] 7 % 2-10 % Final [facility] L ab (Internal) : [address] ? ? BLD ? Eos 0 % 0-6 % Final [facility] L ab (Internal) : [address] ? ? BLD ? Baso 0 % 0-1 % Final [facility] L ab (Internal) : [address] ? ? BLD ? Atyp 0 % ? Final [facility] L ab (Internal) : [address] ? ? BLD ? Plts, adequate adequate Final [facility] L ab (Internal) : [address] t ? ? BLD ? RBC normal normal Final [facility] L ab (Internal) : [address] t 08/14/2021 Neutrophi BLD ? Anc-ma 8.97 ? Final No rth l Count, nual 10*3/uL [facility] Lab (Anc), (Internal) : Blood [address] t 08/14/2021 Nlr-manua BLD High Nlr - 7.45 0.00-3.20 Final [facility] L ab (Internal) : [address] t 08/13/2021 BMP, S High g/r 124 mg/dL 74-106 Final [place] Serum or mg/dL [facility] L ab (Internal) : [address] ? ? S High Bun 32 mg/dL 7-18 Final [place] mg/dL [facility] L ab (Internal) : [address] t ? ? S ? Crea 1.0 mg/dL 0.6-1.0 Final [place] mg/dL [facility] L ab (Internal) : [address] t ? ? S ? Ca 9.2 mg/dL 8.5-10.1 Final [place] mg/dL [facility] Hospital L ab (Internal) : [address] t ? ? S ? Na 137 mmol/L 136-145 Final [place] mmol/L [facility] L ab (Internal) : [address] t ? ? S ? K 4.8 mmol/L 3.5-5.1 Final [place] mmol/L [facility] L ab (Internal) : [address] t ? ? S ? Cl 100 mmol/l 98-107 Final [place] mmol/l [facility] L ab (Internal) : [address] t ? ? S ? Tco2 30.8 mmol/L 21.0-32.0 Final No rth mmol/L [facility] Hospital L ab (Internal) : [address] t 08/13/2021 CBC W/ BLD High Wbc 13.6 5.0-10.0 Final Nort h Auto Diff 10*3/uL 10*3/uL [facility] L ab (Internal) : [address] t ? ? BLD ? Rbc 5.19 4.10-5.30 Final [place] 10*6/uL 10*6/uL [facility] Hospital L ab (Internal) : [address] t ? ? BLD ? Hgb 13.9 g/dL 12.0-16.0 Final Nort h g/dL [facility] L ab (Internal) : [address] t ? ? BLD ? Hct 44.7 % 37.0-47.0 Final [place] % [facility] L ab (Internal) : [address] t ? ? BLD ? Mcv 86.1 fL 80.0-96.0 Final [place] fL [facility] L ab (Internal) : [address] t ? ? BLD ? Mch 26.8 pg 26.0-32.0 Final [place] pg [facility] Hospital L ab (Internal) : [address] ? ? BLD ? Mchc 31.1 g/dL 31.0-35.0 Final Nort h g/dL [facility] Hospital L ab (Internal) : [address] t ? ? BLD ? Rdw 14.0 % 11.5-14.5 Final [place] [facility] L ab (Internal) : [address] t ? ? BLD ? Plt 234 10*3/uL 130-450 Final Nort h 10*3/uL [facility] L ab (Internal) : [address] t 08/13/2021 BNP S High Nt-bnp 358 pg/mL 0-125 Final No rth (B-type pg/mL [facility] Lab ic (Internal) : Peptide), [address] , [place] N-termina l, Quant, Immunoass ay, Blood 08/13/2021 Different BLD High Polys 82 % 40-75 % Final No rth ial, [facility] Lab Blood (Internal) : [address] t ? ? BLD ? Bands 0 % 0-5 % Final [facility] L ab (Internal) : [address] t ? ? BLD Low Lymphs 12 % 20-50 % Final [facility] L ab (Internal) : [address] t ? ? BLD ? [place] 6 % 2-10 % Final [facility] L ab (Internal) : [address] t ? ? BLD ? Eos 0 % 0-6 % Final [facility] L ab (Internal) : [address] t ? ? BLD ? Baso 0 % 0-1 % Final [facility] L ab (Internal) : [address] t ? ? BLD ? Atyp 0 % ? Final [facility] L ab (Internal) : [address] t ? ? BLD ? Plts, adequate adequate Final [facility] L ab (Internal) : [address] t ? ? BLD ? RBC normal normal Final [facility] L ab (Internal) : [address] 08/13/2021 Neutrophi BLD ? Anc-ma 11.17 ? Final No rth l Count, nual 10*3/uL Country [facility] Hospital Lab (Anc), (Internal) : Blood [address] 08/13/2021 Nlr-manua BLD High Nlr - 6.83 0.00-3.20 Final [place] l Manual [facility] Hospital L ab (Internal) : [address] 08/12/2021 BMP, S High g/r 165 mg/dL 74-106 Final Nor th Serum or mg/dL [facility] Plasma [facility] L ab (Internal) : [address] t ? ? S High Bun 32 mg/dL 7-18 Final North mg/dL [facility] L ab (Internal) : [address] t ? ? S ? Crea 1.0 mg/dL 0.6-1.0 Final [place] mg/dL [facility] L ab (Internal) : [address] t ? ? S ? Ca 9.2 mg/dL 8.5-10.1 Final [place] mg/dL [facility] L ab (Internal) : [address] t ? ? S ? Na 138 mmol/L 136-145 Final [place] mmol/L [facility] L ab (Internal) : [address] t ? ? S ? K 4.4 mmol/L 3.5-5.1 Final [place] mmol/L [facility] L ab (Internal) : [address] t ? ? S ? Cl 100 mmol/l 98-107 Final [place] mmol/l [facility] L ab (Internal) : [address] ? ? S ? Tco2 28.9 mmol/L 21.0-32.0 Final No rth mmol/L [facility] L ab (Internal) : [address] 08/12/2021 CBC W/ BLD High Wbc 12.8 5.0-10.0 Final Nort h Auto Diff 10*3/uL 10*3/uL [facility] L ab (Internal) : [address] t ? ? BLD ? Rbc 4.91 4.10-5.30 Final [place] 10*6/uL 10*6/uL [facility] L ab (Internal) : [address] t ? ? BLD ? Hgb 13.2 g/dL 12.0-16.0 Final Nort h g/dL [facility] Hospital L ab (Internal) : [address] ? ? BLD ? Hct 42.3 % 37.0-47.0 Final [facility] Hospital L ab (Internal) : [address] ? ? BLD ? Mcv 86.2 fL 80.0-96.0 Final [facility] Hospital L ab (Internal) : [address] ? ? BLD ? Mch 26.9 pg 26.0-32.0 Final [facility] Hospital L ab (Internal) : [address] ? ? BLD ? Mchc 31.2 g/dL 31.0-35.0 Final Nort h g/dL [facility] Hospital L ab (Internal) : [address] ? ? BLD ? Rdw 14.1 % 11.5-14.5 Final [facility] Hospital L ab (Internal) : [address] ? ? BLD ? Plt 217 10*3/uL 130-450 Final Nort h 10*3/uL [facility] Hospital L ab (Internal) : [address] t 08/12/2021 Different BLD High Polys 79 % 40-75 % Final No rth ial, [facility] Lab Blood (Internal) : [address] ? ? BLD ? Bands 0 % 0-5 % Final [facility] L ab (Internal) : [address] ? ? BLD Low Lymphs 11 % 20-50 % Final [facility] L ab (Internal) : [address] ? ? BLD ? [place] 9 % 2-10 % Final [facility] Hospital L ab (Internal) : [address] ? ? BLD ? Eos 0 % 0-6 % Final [facility] L ab (Internal) : [address] ? ? BLD ? Baso 0 % 0-1 % Final [facility] L ab (Internal) : [address] ? ? BLD ? Atyp 0 % ? Final [facility] Hospital L ab (Internal) : [address] ? ? BLD High Young 1 % 0-0 % Final [facility] L ab (Internal) : [address] ? ? BLD ? Plts, adequate adequate Final [place] [facility] Hospital L ab (Internal) : [address] t ? ? BLD ? RBC normal normal Final [place] Morphol [facility] og Hospital L ab (Internal) : [address] t 08/12/2021 Neutrophi BLD ? Anc-ma 10.14 ? Final No rth l Count, nual 10*3/uL [facility] Absolute Hospital Lab (Anc), (Internal) : Blood [address] 08/12/2021 Nlr-manua BLD High Nlr - 7.18 0.00-3.20 Final [facility] Manual [facility] Hospital L ab (Internal) : [address] 08/12/2021 Methicill NASAL ? Final microbiolog ? Final [place] in y results [facility] Lab Staphyloc (Sulfur Chloride Operator al): occus [address] [place] Culture, Nasal 08/11/2021 CBC W/ BLD High Wbc 13.1 5.0-10.0 Final Nort h Auto Diff 10*3/uL 10*3/uL [facility] L ab (Internal) : [address] ? ? BLD ? Rbc 5.11 4.10-5.30 Final [place] 10*6/uL 10*6/uL [facility] L ab (Internal) : [address] t ? ? BLD ? Hgb 13.7 g/dL 12.0-16.0 Final Nort h g/dL [facility] Hospital L ab (Internal) : [address] t ? ? BLD ? Hct 43.9 % 37.0-47.0 Final [facility] Hospital L ab (Internal) : [address] ? ? BLD ? Mcv 85.9 fL 80.0-96.0 Final [facility] Hospital L ab (Internal) : [address] ? ? BLD ? Mch 26.8 pg 26.0-32.0 Final [facility] Hospital L ab (Internal) : [address] t ? ? BLD ? Mchc 31.2 g/dL 31.0-35.0 Final [facility] g/dL [facility] (Internal[facility] : [address] ? ? BLD ? Rdw 13.9 % 11.5-14.5 Final [place] % [facility] Hospital L ab (Internal) : [address] ? ? BLD ? Plt several 130-450 Corrected [place] platelet 10*3/uL [facility] L [facility] present. (Interna l): 10*3/uL [address] 08/11/2021 BMP, S High g/r 222 mg/dL 74-106 Final [place] Serum or mg/dL [facility] L ab (Internal) : [address] ? ? S High Bun 27 mg/dL 7-18 Final [place] mg/dL [facility] L ab (Internal) : [address] ? ? S High Crea 1.1 mg/dL 0.6-1.0 Final [place] mg/dL [facility] Hospital L ab (Internal) : [address] ? ? S ? Ca 9.6 mg/dL 8.5-10.1 Final [place] mg/dL [facility] L ab (Internal) : [address] ? ? S Low Na 133 mmol/L 136-145 Final [place] mmol/L [facility] L ab (Internal) : [address] ? ? S High K 5.7 mmol/L 3.5-5.1 Final [place] mmol/L [facility] L ab (Internal) : [address] ? ? S Low Cl 97 mmol/l 98-107 Final [place] mmol/l [facility] L ab (Internal) : [address] t ? ? S ? Tco2 22.9 mmol/L 21.0-32.0 Final No rth mmol/L [facility] Hospital L ab (Internal) : [address] 08/11/2021 Different BLD High Polys 87 % 40-75 % Final No rth ial, [facility] Lab Blood (Internal) : [address] ? ? BLD ? Bands 1 % 0-5 % Final [facility] Hospital L ab (Internal) : [address] t ? ? BLD Low Lymphs 8 % 20-50 % Final [facility] L ab (Internal) : [address] t ? ? BLD ? [place] 4 % 2-10 % Final [facility] L ab (Internal) : [address] t ? ? BLD ? Eos 0 % 0-6 % Final [facility] L ab (Internal) : [address] t ? ? BLD ? Baso 0 % 0-1 % Final [facility] L ab (Internal) : [address] t ? ? BLD ? Atyp 0 % ? Final [facility] L ab (Internal) : [address] ? ? BLD ABNORMAL Plts, clumped adequate Final [facility] L ab (Internal) : [address] ? ? BLD ? RBC normal normal Final [facility] L ab (Internal) : [address] t 08/11/2021 Neutrophi BLD ? Anc-ma 11.50 ? Final No rth l Count, nual 10*3/uL [facility] Hospital Lab (Anc), (Internal) : Blood [address] t 08/11/2021 Nlr-manua BLD High Nlr - 11.00 0.00-3.20 Final [facility] L ab (Internal) : [address] t 08/11/2021 Troponin S ? Trop 19.51 pg/mL 0.00-60.4 Fin al [place] I, Serum 0 pg/mL [facility] Lab (Internal[facility] : [address] t 08/10/2021 CBC W/ BLD High Wbc 10.4 5.0-10.0 Final Nort h Auto Diff 10*3/uL 10*3/uL [facility] L ab (Internal) : [address] t ? ? BLD ? Rbc 5.09 4.10-5.30 Final [place] 10*6/uL 10*6/uL [facility] L ab (Internal) : [address] ? ? BLD ? Hgb 13.5 g/dL 12.0-16.0 Final [facility] g/dL [facility] (Internal) : [address] ? ? BLD ? Hct 44.2 % 37.0-47.0 Final [facility] (Internal) : [address] ? ? BLD ? Mcv 86.8 fL 80.0-96.0 Final [place] fL [facility] L [facility] (Internal) : [address] ? ? BLD ? Mch 26.5 pg 26.0-32.0 Final [facility] pg [facility] L [facility] (Internal) : [address] ? ? BLD Low Mchc 30.5 g/dL 31.0-35.0 Final [facility] g/dL [facility] (Internal) : [address] ? ? BLD ? Rdw 14.1 % 11.5-14.5 Final [facility] (Internal) : [address] ? ? BLD ? Plt 241 10*3/uL 130-450 Final Nort [facility] 10*3/uL [facility] L [facility] (Internal) : [address] t 08/10/2021 BMP, S High g/r 283 mg/dL 74-106 Final [place] Serum or mg/dL [facility] L ab (Internal) : [address] ? ? S High Bun 20 mg/dL 7-18 Final [facility] mg/dL [facility] (Internal) : [address] ? ? S High Crea 1.1 mg/dL 0.6-1.0 Final [place] mg/dL [facility] (Internal) : [address] ? ? S ? Ca 9.8 mg/dL 8.5-10.1 Final [place] mg/dL [facility] L [facility] (Internal) : [address] ? ? S ? Na 136 mmol/L 136-145 Final [place] mmol/L [facility] (Internal) : [address] ? ? S ? K 4.8 mmol/L 3.5-5.1 Final [place] mmol/L [facility] (Internal) : [address] ? ? S ? Cl 98 mmol/l 98-107 Final [place] mmol/l [facility] Hospital L ab (Internal) : [address] ? ? S ? Tco2 28.0 mmol/L 21.0-32.0 Final No rth mmol/L [facility] Hospital L ab (Internal) : [address] t 08/10/2021 Different BLD High Polys 89 % 40-75 % Final No rth ial, [facility] Manual, Hospital Lab Blood (Internal) : [address] ? ? BLD ? Bands 0 % 0-5 % Final [facility] Hospital L ab (Internal) : [address] ? ? BLD Low Lymphs 10 % 20-50 % Final [facility] L ab (Internal) : [address] ? ? BLD Low [place] 1 % 2-10 % Final [facility] Hospital L ab (Internal) : [address] ? ? BLD ? Eos 0 % 0-6 % Final [facility] L ab (Internal) : [address] ? ? BLD ? Baso 0 % 0-1 % Final [facility] L ab (Internal) : [address] ? ? BLD ? Atyp 0 % ? Final [facility] L ab (Internal) : [address] ? ? BLD ? Plts, adequate adequate Final [facility] L ab (Internal) : [address] ? ? BLD ? RBC normal normal Final [facility] L ab (Internal) : [address] t 08/10/2021 Neutrophi BLD ? Anc-ma 9.26 ? Final No rth l Count, nual 10*3/uL [facility] Absolute Hospital Lab (Anc), (Internal) : Blood [address] t 08/10/2021 Nlr-manua BLD High Nlr - 8.90 0.00-3.20 Final [facility] Hospital L ab (Internal) : [address] t 08/10/2021 Rapid Flu NASAL ? Final microbiolog ? Final [place] (A+B) y results [facility] Hospital L ab (Internal) : [address] t 08/09/2021 Culture, BLD ? Final microbiolog ? Final [place] Blood 1 y results Countr y Hospital L ab (Internal) : [address] 08/09/2021 CBC W/ BLD High Wbc 15.0 5.0-10.0 Final Nort h Auto Diff 10*3/uL 10*3/uL [facility] Hospital L ab (Internal) : [address] ? ? BLD ? Rbc 4.81 4.10-5.30 Final [place] 10*6/uL 10*6/uL [facility] L ab (Internal) : [address] ? ? BLD ? Hgb 13.0 g/dL 12.0-16.0 Final Nort h g/dL [facility] L ab (Internal) : [address] ? ? BLD ? Hct 41.9 % 37.0-47.0 Final [facility] L ab (Internal) : [address] ? ? BLD ? Mcv 87.1 fL 80.0-96.0 Final [facility] L ab (Internal) : [address] ? ? BLD ? Mch 27.0 pg 26.0-32.0 Final [facility] L ab (Internal) : [address] ? ? BLD ? Mchc 31.0 g/dL 31.0-35.0 Final Nort h g/dL [facility] L ab (Internal) : [address] ? ? BLD ? Rdw 14.5 % 11.5-14.5 Final [facility] L ab (Internal) : [address] ? ? BLD ? Plt 218 10*3/uL 130-450 Final Nort h 10*3/uL [facility] L ab (Internal) : [address] ? ? BLD ? Anc 11.14 ? Final [place] 10*3/uL [facility] L ab (Internal) : [address] ? ? BLD High Nlr 5.99 0.00-3.20 Final [facility] L ab (Internal) : [address] ? ? BLD ? Neutro 74.1 % 40.0-75.0 Final [facility] L ab (Internal) : [address] ? ? BLD Low Lymph 12.4 % 20.0-50.0 Final [facility] (Internal) : [address] ? ? BLD ? [place] 6.9 % 2.0-10.0 Final [facility] (Internal) : [address] ? ? BLD ? Eos 5.6 % 1.0-6.0 % Final [facility] Hospital L ab (Internal) : [address] ? ? BLD ? Baso 0.7 % 0.0-1.0 % Final [facility] Hospital L ab (Internal) : [address] ? ? BLD ? Ig 0.3 % 0.0-0.9 % Final [facility] Hospital L ab (Internal) : [address] 08/09/2021 Culture, BLD ? Final microbiolog ? Final [place] Blood 2 y results Countr Hospital L ab (Internal) : [address] 08/09/2021 SARS CoV SWAB ? Covid favio-cov-2 favio-cov-2 Final [place] [address] RNA PCR not not Country (COVID-19 Screen detected detected Hos pital Lab ), , (Internal) : remnants cutter-PCR, [address] [facility] ry Specimen 08/09/2021 D-dimer, PLASMA ? Dimq 0.47 mg/L 0.00-0.50 Final [place] Quant, mg/L [facility] Plasma Hospital L ab (Internal) : [address] 08/09/2021 Ferritin, S ? Ferr 49 NG/mL 8-252 Final N orth Serum or NG/mL [facility] L ab (Internal) : [address] 08/09/2021 CMP, S High g/r 115 mg/dL 74-106 Final Nor th Serum or mg/dL [facility] L ab (Internal) : [address] ? ? S ? Bun 18 mg/dL 7-18 Final [place] mg/dL [facility] Hospital L ab (Internal) : [address] ? ? S ? Crea 1.0 mg/dL 0.6-1.0 Final [place] mg/dL [facility] L [facility] (Internal) : [address] ? ? S ? Ca 9.7 mg/dL 8.5-10.1 Final [place] mg/dL [facility] L [facility] (Internal) : [address] ? ? S ? Na 137 mmol/L 136-145 Final [place] mmol/L [facility] Hospital L ab (Internal) : [address] ? ? S ? K 4.7 mmol/L 3.5-5.1 Final [place] mmol/L [facility] (Internal) : [address] ? ? S ? Cl 100 mmol/l 98-107 Final [place] mmol/l [facility] Hospital L ab (Internal) : [address] ? ? S ? Tco2 28.5 mmol/L 21.0-32.0 Final No rth mmol/L [facility] L ab (Internal) : [address] ? ? S ? Tp 8.0 g/dL 6.4-8.2 Final [place] g/dL [facility] L [facility] (Internal) : [address] ? ? S Low Alb 3.1 g/dL 3.4-5.0 Final [place] g/dL [facility] L [facility] (Internal) : [address] ? ? S ? Tbil 0.30 mg/dL 0.20-1.00 Final [facility] th mg/dL [facility] L ab (Internal) : [address] ? ? S High Alp 144 U/L 46-116 Final [place] U/L [facility] Hospital L ab (Internal) : [address] ? ? S ? Alt ? 14-59 U/L Final [place] (Sgpt) [facility] Hospital L ab (Internal) : [address] ? ? S ? Ast 22 U/L 15-37 U/L Final [place] (Sgot) [facility] Hospital L ab (Internal) : [address] 08/09/2021 Troponin S ? Trop 18.42 pg/mL 0.00-60.4 Fin al [place] I, Serum 0 pg/mL [facility] or Plasma [facility]osp[facility] l Lab (Internal) : [address] 08/09/2021 Procalcit ? Pct <0.15 NG/mL 0.00-0.50 Fi nal [place] onin, NG/mL [facility] Serum Hospital L ab (Internal) : [address] [facility] 08/09/2021 CRP, High S High Rcrp 30.85 mg/L 0.00-3.00 Fin al [place] Sensitivi mg/L Country ty, Serum Hospita l Lab or Plasma (Sulfur Chloride Operator al): [address] [facility] 08/09/2021 EKG Done ? No ? ? ? [facility] ): d. [address] [facility] 08/09/2021 Ldh, S High Ldh 373 U/L 81-234 Final [place] Serum or U/L [facility] Plasma Hospital L ab (Internal) : [address] [facility] 08/09/2021 BNP S High Nt-bnp 215 pg/mL 0-125 Final No rth (B-type pg/mL [facility]ospita l Lab ic (Internal) : Peptide), [address] , [facility] e N-termina l, Quant, Immunoass ay, Blood 08/09/2021 Ph, BLD ? Venous 7.35 [pH] 7.32-7.43 Final [place] Venous pH [pH] [facility] Hospital L ab (Internal) : [address] ? ? BLD High Pco2 54 mm[hg] 33-47 Final [place] mm[hg] [facility] L ab (Internal) : [address] ? ? BLD CRITICAL TCO2, 54 mmol/L ? Final [place] HIGH Venous [facility] Hospital L ab (Internal) : [address] ? ? BLD ? Base 3.3 mmol/L ? Final [facility] Hospital L ab (Internal) : [address] [facility] 05/06/2021 T4, Free, S ? Ft4 1.34 NG/dL 0.76-1.46 Fin al [place] Serum NG/dL [facility] L ab (Internal) : [address] [facility] 05/06/2021 TSH, S ? Tsh 1.16 uIU/mL 0.36-3.74 Final [place] Serum or uIU/mL [facility] Plasma [facility] L ab (Internal) : [address] 05/06/2021 Venipunct ? Locati Right Hand ? ? P_nc Primary ure on Care [place] [address], [place] ? ? ? Needle 23g ? ? P_nc Prim rupert Butterfly Care [place]: [address], [place] ? ? ? Number 1 ? ? P_nc Prim rupert of Care Attempt [place]: [address], [place] ? ? ? Succes Yes ? ? P_nc Prim rupert sful Care [place]: [address], [place] ? ? ? Dressi Pressure ? ? P_nc Pr imary ng Band-aid Care Applied [place]: [address], [place] ? ? ? Initia hj ? ? P_nc Prim rupert ls Care [place]: [address], [place] 09/25/2020 Pathology TISS ? Report (see below) ? Frances matamoros [facility] L ab (Internal) : [address] 07/22/2020 CBC W/ BLD High Wbc 11.7 5.0-10.0 Final Nort h Auto Diff 10*3/uL 10*3/uL Count Hospital L ab (Internal) : [address] ? ? BLD ? Rbc 4.64 4.10-5.30 Final [place] 10*6/uL 10*6/uL [facility] L ab (Internal) : [address] ? ? BLD ? Hgb 13.6 g/dL 12.0-16.0 Final Nort h g/dL [facility] L ab (Internal) : [address] ? ? BLD ? Hct 43.7 % 37.0-47.0 Final [facility] L ab (Internal) : [address] ? ? BLD ? Mcv 94.2 fL 80.0-96.0 Final [facility] L ab (Internal) : [address] ? ? BLD ? Mch 29.3 pg 26.0-32.0 Final [facility] L ab (Internal) : [address] [place] ? ? BLD ? Mchc 31.1 g/dL 31.0-35.0 Final Nort h g/dL [facility] Hospital L ab (Internal) : [address] , [place] ? ? BLD ? Rdw 14.3 % 11.5-14.5 Final [facility] L ab (Internal) : [address] ? ? BLD ? Plt 205 10*3/uL 130-450 Final Nort h 10*3/uL [facility] Hospital L ab (Internal) : [address] [place] ? ? BLD ? Anc 7.03 ? Final [place] 10*3/uL [facility] Hospital L ab (Internal) : [address] [place] ? ? BLD ? Nlr 2.00 0.00-3.20 Final [facility] L ab (Internal) : [address] ? ? BLD ? Neutro 59.9 % 40.0-75.0 Final [facility] L ab (Internal) : [address] [place] ? ? BLD ? Lymph 30.0 % 20.0-50.0 Final [facility] L ab (Internal) : [address] ? ? BLD ? Gratiot 6.7 % 2.0-10.0 Final [facility] L ab (Internal) : [address] ? ? BLD ? Eos 2.3 % 1.0-6.0 % Final [facility] L ab (Internal) : [address], [place] ? ? BLD ? Baso 0.8 % 0.0-1.0 % Final [facility] L ab (Internal) : [address] ? ? BLD ? Ig 0.3 % 0.0-0.9 % Final [facility] L ab (Internal) : [address] t 07/22/2020 Urinalysi UR ? UA-col yellow pale Final No rth s, or yellow [facility] Dipstick, Hospita l Lab Reflex (Internal) : Micro [address] t ? ? UR ABNORMAL UA-mercy cloudy clear Final [facility] (Internal) : [address] t ? ? UR ? UA-spe 1.025 1.003-1.0 Final [place] c Grav 35 [facility] L ab (Internal) : [address] t ? ? UR ? UA-pH 5.5 [pH] 4.6-8.0 Final [place] [pH] [facility] L ab (Internal) : [address] t ? ? UR ABNORMAL UA-malissa small negative Final [place] k Est [facility] L ab (Internal) : [address] t ? ? UR ? UA-nit negative negative Final [facility] L ab (Internal) : [address] t ? ? UR ABNORMAL UA-pro 1+ negative Final [facility] ab (Internal) : [address] t ? ? UR ABNORMAL UA-glu 4+ negative Final [facility] ab (Internal) : [address] t ? ? UR ? UA-ket negative negative Final [facility] ab (Internal) : [address] t ? ? UR ? UA-uro normal normal Final [facility] ab (Internal) : [address] t ? ? UR ? UA-agustín negative negative Final [place] i [facility] ab (Internal) : [address] t ? ? UR ABNORMAL UA-blo small negative Final [facility] ab (Internal) : [address] 07/22/2020 Urinalysi UR ABNORMAL UA-WBC 50-100 0-3 [hpf] Frances Jaime s, [hpf] [facility] l Lab ic (Internal) : [address] t ? ? UR ABNORMAL UA-RBC 3-5 [hpf] 0-2 [hpf] Final N orth [facility] L ab (Internal) : [address] t ? ? UR ABNORMAL UA-andreea moderate none seen Final No rth teria [hpf] [hpf] [facility] ab (Internal) : [address] t ? ? UR ABNORMAL UA-epi moderate none seen Final No rth thelial [hpf] [hpf] [facility] ab (Internal) : [address] t ? ? UR ? UA-muc none seen none seen Final Nor th us [hpf] [hpf] [facility] (Internal[facility] : [address] 07/22/2020 Culture UR ? Final microbiolog ? Final [place] (Bascom y results Countr y Count), Hospital Lab Urine (Internal) : [address] 07/22/2020 BMP, S High g/r 347 mg/dL 74-106 Final Nor th Serum or mg/dL [facility] Plasma [facility] L ab (Internal) : [address] t ? ? S ? Bun 13 mg/dL 7-17 Final [place] mg/dL [facility] Hospital L ab (Internal) : [address] t ? ? S ? Crea 0.80 mg/dL 0.52-1.04 Final Nor th mg/dL [facility] Hospital L ab (Internal) : [address] t ? ? S ? Ca 9.4 mg/dL 8.4-10.2 Final [place] mg/dL [facility] Hospital L ab (Internal) : [address] t ? ? S ? Na 138 mmol/L 137-145 Final [place] mmol/L [facility] Hospital L ab (Internal) : [address] t ? ? S ? K 4.5 mmol/L 3.5-5.1 Final [place] mmol/L [facility] Hospital L ab (Internal) : [address] t ? ? S ? Cl 103 mmol/L 98-107 Final [place] mmol/L [facility] L ab (Internal) : [address] t ? ? S ? Tco2 26.0 mmol/L 22.0-30.0 Final No rth mmol/L [facility] Hospital L ab (Internal) : [address] 07/22/2020 HbA1C BLD High Ha1C 9.1 % 4.0-6.0 % Final Nor th (Hemoglob [facility] in a1C), Hospital Lab Blood (Internal) : [address] 07/22/2020 Lipid S High Chol 284 mg/dL 50-200 Final Nor th Panel, mg/dL [facility] Serum [facility] L ab (Internal) : [address] t ? ? S High Trig 280 mg/dL 10-150 Final [place] mg/dL [facility] Hospital L ab (Internal) : [address] t ? ? S Low Hdl 34 mg/dL 40-60 Final North mg/dL [facility] L ab (Internal) : [address] t ? ? S High Ldl 194 mg/dL 0-130 Final North mg/dL [facility] L ab (Internal) : [address] t 07/22/2020 Hepatic S ? Tbil 0.3 mg/dL 0.2-1.3 Final N orth Function mg/dL [facility], Hospital L ab Serum (Internal) : [address] t ? ? S ? Dbil 0.1 mg/dL 0.0-0.3 Final [place] mg/dL [facility] L ab (Internal) : [address] t ? ? S ? Alp 108 U/L 38-126 Final North U/L [facility] L ab (Internal) : [address] t ? ? S ? Alt 21 U/L 9-52 U/L Final [place] (Sgpt) [facility] L ab (Internal) : [address] t ? ? S ? Ast 25 U/L 14-36 U/L Final [place] (Sgot) [facility] L ab (Internal) : [address] t ? ? S ? Ggt 34 U/L 12-43 U/L Final [facility] L ab (Internal) : [address] t ? ? S ? Tp 7.8 g/dL 6.3-8.2 Final North g/dL [facility] L ab (Internal) : [address] t ? ? S ? Alb 4.2 g/dL 3.5-5.0 Final North g/dL [facility] L ab (Internal) : [address] 07/22/2020 TSH, S High Tsh 15.10 0.47-4.68 Final [facility] th Serum or u[IU]/mL u[IU]/mL [facility] L [facility] (Internal[facility] : [address] 07/22/2020 Folate, S ? Folate 5.91 NG/mL 2.76-20.0 Frances l [place] Serum 0 NG/mL [facility] L ab (Internal) : [address] 07/22/2020 Vitamin S High Vit >1000.0 239.0-931 Final N orth B12, B12 pg/mL .0 pg/mL [facility] Serum Hospital L ab (Internal) : [address] 07/05/2019 CBC W/ BLD High Wbc 12.1 5.0-10.0 Final Nort h Auto Diff 10*3/uL 10*3/uL Count Hospital L ab (Internal) : [address] ? ? BLD - Rbc 4.55 4.10-5.30 Final [place] 10*6/uL 10*6/uL [facility] Hospital L ab (Internal) : [address] ? ? BLD - Hgb 13.2 g/dL 12.0-16.0 Final Nort h g/dL [facility] Hospital L ab (Internal) : [address] ? ? BLD - Hct 42.1 % 37.0-47.0 Final [facility] L ab (Internal) : [address] ? ? BLD - Mcv 92.5 fL 80.0-96.0 Final [facility] L ab (Internal) : [address] ? ? BLD - Mch 29.0 pg 26.0-32.0 Final [facility] Hospital L ab (Internal) : [address] ? ? BLD - Mchc 31.4 g/dL 31.0-35.0 Final Nort h g/dL [facility] Hospital L ab (Internal) : [address] ? ? BLD High Rdw 14.6 % 11.5-14.5 Final [facility] Hospital L ab (Internal) : [address] ? ? BLD - Plt 218 10*3/uL 130-450 Final Nort h 10*3/uL [facility] Hospital L ab (Internal) : [address] ? ? BLD - Anc 7.26 ? Final North 10*3/uL [facility] L ab (Internal) : [address] [place] ? ? BLD - Neutro 60.2 % 40.0-75.0 Final [facility] Hospital L ab (Internal) : [address] ? ? BLD - Lymph 27.5 % 20.0-50.0 Final [facility] L [facility] (Internal) : [address] t ? ? BLD - Gratiot 7.0 % 2.0-10.0 Final [facility] % [facility] L ab (Internal) : [address] t ? ? BLD - Eos 4.2 % 1.0-6.0 % Final [facility] (Internal) : [address] t ? ? BLD - Baso 0.8 % 0.0-1.0 % Final [place] [facility] (Internal) : [address] t ? ? BLD - Ig 0.3 % 0.0-0.9 % Final [place] [facility] (Internal) : [address] 07/05/2019 CMP, S High g/r 227 mg/dL 74-106 Final Nor th Serum or mg/dL [facility] Plasma [facility] L ab (Internal) : [address] t ? ? S - Bun 13 mg/dL 7-17 Final [facility] mg/dL [facility] L [facility] (Internal) : [address] t ? ? S - Crea 0.70 mg/dL 0.52-1.04 Final Nor th mg/dL [facility] L [facility] (Internal) : [address] t ? ? S - Ca 9.3 mg/dL 8.4-10.2 Final [facility] mg/dL [facility] L [facility] (Internal) : [address] t ? ? S - Na 137 mmol/L 137-145 Final [facility] mmol/L [facility] L [facility] (Internal) : [address] t ? ? S High K 5.4 mmol/L 3.5-5.1 Final [facility] mmol/L [facility] L [facility] (Internal) : [address] t ? ? S - Cl 100 mmol/L 98-107 Final [place] mmol/L [facility] (Internal) : [address] t ? ? S - Tco2 30.0 mmol/L 22.0-30.0 Final No rth mmol/L [facility] L [facility] (Internal) : [address] t ? ? S - Tp 6.9 g/dL 6.3-8.2 Final [place] g/dL [facility] L [facility] (Internal) : [address] [place] ? ? S - Alb 3.6 g/dL 3.5-5.0 Final [place] g/dL [facility] L [facility] (Internal) : [address] [place] ? ? S - Tbil 0.2 mg/dL 0.2-1.3 Final [facility] mg/dL [facility] L [facility] (Internal) : [address] [place] ? ? S - Alp 100 U/L 38-126 Final [facility] U/L [facility] L [facility] (Internal) : [address] [place] ? ? S - Alt 12 U/L 9-52 U/L Final [place] (Sgpt) [facility] Hospital L ab (Internal) : [address] [place] ? ? S - Ast 20 U/L 14-36 U/L Final [place] (Sgot) [facility] L [facility] (Internal) : [address] 07/05/2019 Lipid S - Chol 129 mg/dL 50-200 Final Nor Panel, mg/dL [facility] Serum [facility] L ab (Internal) : [address] ? ? S - Trig 102 mg/dL 10-150 Final [place] mg/dL [facility] Hospital L ab (Internal) : [address] ? ? S Low Hdl 37 mg/dL 40-60 Final [place] mg/dL [facility] Hospital L ab (Internal) : [address] ? ? S - Ldl 72 mg/dL 0-130 Final [place] mg/dL [facility] Hospital L ab (Internal) : [address] 07/05/2019 HbA1C BLD High Ha1C 8.3 % 4.0-6.0 % Final Nor th (Hemoglob [facility] in a1C), Hospital Lab Blood (Internal) : [address] 07/05/2019 Microalbu UR High Malb 47.9 mg/L 5.0-16.7 Final [place] min, mg/L [facility] Urine [facility] L ab (Internal) : [address] ? ? UR - U-crea 52 mg/dL 30-125 Final [place] , Spot mg/dL [facility] L ab (Internal) : [address] ? ? UR High Microa 92.8 ug/mg 0.0-30.0 Final Nor th lb/crea ug/mg [facility] Hospital L ab (Internal) : [address] 06/14/2019 Culture UR - Final microbiolog ? Final [place] (Bascom y results Countr y Count), Hospital Lab Urine (Internal) : [address] 04/22/2019 Culture UR - Final microbiolog ? Final [place] (Bascom y results Countr y Count), Hospital Lab Urine (Internal) : [address] 04/11/2019 Drug UR - Thc negative neg (50 Final Nor th Screen, NG/mL NG/mL) [facility] Urine NG/mL Hospital L ab (Internal) : [address] ? ? UR - Pcp negative neg (25 Final [place] NG/mL) [facility] L ab (Internal) : [address] ? ? UR - Seven negative neg (150 Final [place] NG/mL) [facility] L ab (Internal) : [address] ? ? UR - Met negative neg (500 Final [place] NG/mL) [facility] L [facility] (Internal) : [address] ? ? UR - Opi negative neg (100 Final [place] NG/mL) [facility] L [facility] (Internal) : [address] ? ? UR - Amp negative neg (500 Final [place] NG/mL) [facility] L [facility] (Internal) : [address] ? ? UR - Bzo negative neg (150 Final [place] NG/mL) [facility] L [facility] (Internal) : [address] ? ? UR - Tca negative neg (300 Final [place] NG/mL) [facility] L [facility] (Internal) : [address] ? ? UR - Mtd negative neg (200 Final [place] NG/mL) [facility] L [facility] (Internal) : [address] ? ? UR - Bar negative neg (200 Final [place] NG/mL) [facility] L [facility] (Internal) : [address] ? ? UR ABNORMAL Oxy positive neg (100 Final Nort h NG/mL) [facility] L ab (Internal) : [address], [facility] t ? ? UR - Ppx negative neg (300 Final [facility] NG/mL) [facility] ab (Internal) : [address], [facility] t ? ? UR - Bup negative neg (10 Final [facility] NG/mL) [facility] ab (Internal) : [address] 04/11/2019 Opiates, UR - Codein negative cutoff: Final [place] Qualitati e-by NG/mL 25 NG/mL Count ry ve, Urine lc-MS/M Hospit al Lab S (Internal) : [address], [facility] t ? ? UR - Dihydr negative cutoff: Final [place] ocodein NG/mL 25 NG/mL Country e-by Hospital ab lc-MS/M (Internal ): S [address], [facility] t ? ? UR - Hydroc negative cutoff: Final North odone-b NG/mL 25 NG/mL Country y Hospital ab lc-MS/M (Internal ): S [address], [facility] t ? ? UR - Norhyd negative cutoff: Final North rocodon NG/mL 25 NG/mL [facility] e-by Hospital ab lc-MS/M (Internal ): S [address], [facility] t ? ? UR - Hydrom negative cutoff: Final North orphone NG/mL 25 NG/mL Country -by Hospital ab lc-MS/M (Internal ): S [address], [facility] t ? ? UR - Oxycod 974 NG/mL cutoff: Final North one-by 25 NG/mL Country lc-MS/M Hospital Lab S (Internal) : [address], [facility] t ? ? UR - Noroxy 679 NG/mL cutoff: Final North codone- 25 NG/mL Country by Hospital ab lc-MS/M (Internal ): S [address] [facility] t ? ? UR - Oxymor 402 NG/mL cutoff: Final North phone-b 25 NG/mL [facility] ab lc-MS/M (Internal ): S [address] [facility] t ? ? UR - Noroxy 66 NG/mL cutoff: Final North morphon 25 NG/mL [facility] e-by Hospital ab lc-MS/M (Internal ): S [address] [facility] ? ? UR - Naloxo negative cutoff: Final [place] ne-by NG/mL 25 NG/mL [facility] lc-MS/M Hospital Lab S (Internal) : [address] ? ? UR - Morphi negative cutoff: Final [place] ne-by NG/mL 25 NG/mL [facility] lc-MS/M Hospital Lab S (Internal) : [address] ? ? UR - Opiate positive. ? Final [place] s [facility] Hospital Lab etation (Internal ): [address] 04/10/2019 Urinalysi UR - UA-col yellow pale Final No rth s, or yellow [facility] Dipstick, Hospita l Lab Reflex (Internal) : Micro [address] ? ? UR - UA-mercy clear clear Final [facility] Hospital L ab (Internal) : [address] ? ? UR - UA-spe 1.020 1.003-1.0 Final [facility] Grav 35 [facility] Hospital L ab (Internal) : [address] ? ? UR - UA-pH 5.5 [pH] 4.6-8.0 Final [place] [pH] [facility] Hospital L ab (Internal) : [address] t ? ? UR ABNORMAL UA-malissa small negative Final [place] k [facility] L ab (Internal) : [address] t ? ? UR - UA-nit negative negative Final [facility] Hospital L ab (Internal) : [address] ? ? UR - UA-pro negative negative Final [facility] Hospital L ab (Internal) : [address] t ? ? UR - UA-glu negative negative Final [place] c [facility] Hospital L ab (Internal) : [address] t ? ? UR - UA-ket negative negative Final [place] one [facility] Hospital L ab (Internal) : [address] t ? ? UR ABNORMAL UA-uro positive normal Final [place] agustín [facility] Hospital L ab (Internal) : [address] t ? ? UR - UA-agustín negative negative Final [place] i [facility] Hospital L ab (Internal) : [address] t ? ? UR - UA-blo negative negative Final [place] od [facility] Hospital L ab (Internal) : [address] 04/10/2019 CBC W/ BLD High Wbc 11.7 5.0-10.0 Final Nort h Auto Diff 10*3/uL 10*3/uL Count Hospital L ab (Internal) : [address] ? ? BLD - Rbc 4.73 4.10-5.30 Final North 10*6/uL 10*6/uL [facility] Hospital L ab (Internal) : [address] ? ? BLD - Hgb 13.2 g/dL 12.0-16.0 Final Nort h g/dL [facility] L ab (Internal) : [address] ? ? BLD - Hct 42.4 % 37.0-47.0 Final [facility] Hospital L ab (Internal) : [address] ? ? BLD - Mcv 89.6 fL 80.0-96.0 Final [facility] Hospital L ab (Internal) : [address] ? ? BLD - Mch 27.9 pg 26.0-32.0 Final [facility] L ab (Internal) : [address] ? ? BLD - Mchc 31.1 g/dL 31.0-35.0 Final Nort h g/dL [facility] Hospital L ab (Internal) : [address] ? ? BLD High Rdw 15.4 % 11.5-14.5 Final [facility] Hospital L ab (Internal) : [address] ? ? BLD - Plt 213 10*3/uL 130-450 Final Nort h 10*3/uL [facility] Hospital L ab (Internal) : [address] ? ? BLD - Anc 7.33 ? Final North 10*3/uL [facility] Hospital L ab (Internal) : [address] [place] ? ? BLD - Neutro 62.8 % 40.0-75.0 Final [facility] Hospital L ab (Internal) : [address] [place] ? ? BLD - Lymph 27.2 % 20.0-50.0 Final [facility] L ab (Internal) : [address] t ? ? BLD - Gratiot 6.9 % 2.0-10.0 Final [facility] Hospital L ab (Internal) : [address] ? ? BLD - Eos 1.9 % 1.0-6.0 % Final [facility] L ab (Internal) : [address] ? ? BLD - Baso 0.9 % 0.0-1.0 % Final [facility] L ab (Internal) : [address] t ? ? BLD - Ig 0.3 % 0.0-0.9 % Final [facility] L ab (Internal) : [address] 04/10/2019 Urinalysi UR ABNORMAL UA-WBC 5-10 [hpf] 0-3 [hpf] Final [facility] l Lab ic (Internal) : [address] ? ? UR - UA-RBC 0-2 [hpf] 0-2 [hpf] Final Nor th [facility] Hospital L ab (Internal) : [address] ? ? UR ABNORMAL UA-andreea moderate none seen Final No rth teria [hpf] [hpf] [facility] Hospital L ab (Internal) : [address] ? ? UR ABNORMAL UA-epi moderate none seen Final No rth thelial [hpf] [hpf] [facility] Hospital L ab (Internal) : [address] ? ? UR ABNORMAL UA-muc rare [hpf] none seen Final [facility] [hpf] [facility] Hospital L ab (Internal) : [address] ? ? UR - Transi rare [hpf] ? Final [place] tion [facility] Hospital L ab (Internal) : [address] 04/10/2019 CMP, S - g/r 106 mg/dL 74-106 Final Nor th Serum or mg/dL [facility] Plasma Hospital L ab (Internal) : [address] ? ? S - Bun 9 mg/dL 7-17 Final [place] mg/dL [facility] Hospital L ab (Internal) : [address] ? ? S - Crea 0.70 mg/dL 0.52-1.04 Final Nor th mg/dL [facility] Hospital L ab (Internal) : [address], [place] ? ? S - Ca 9.8 mg/dL 8.4-10.2 Final [facility] mg/dL [facility] L ab (Internal) : [address] ? ? S - Na 142 mmol/L 137-145 Final [place] mmol/L [facility] Hospital L ab (Internal) : [address] ? ? S - K 4.1 mmol/L 3.5-5.1 Final [facility] mmol/L [facility] L ab (Internal) : [address] ? ? S - Cl 104 mmol/L 98-107 Final [place] mmol/L [facility] L ab (Internal) : [address] t ? ? S - Tco2 27.0 mmol/L 22.0-30.0 Final No rth mmol/L [facility] L ab (Internal) : [address] t ? ? S - Tp 7.9 g/dL 6.3-8.2 Final [place] g/dL [facility] L ab (Internal) : [address] t ? ? S - Alb 4.0 g/dL 3.5-5.0 Final [place] g/dL [facility] L ab (Internal) : [address] t ? ? S - Tbil 0.4 mg/dL 0.2-1.3 Final [place] mg/dL [facility] L ab (Internal) : [address] [place] ? ? S - Alp 121 U/L 38-126 Final [place] U/L [facility] Hospital L ab (Internal) : [address] ? ? S - Alt <10 U/L 9-52 U/L Final [place] (Sgpt) [facility] Hospital L ab (Internal) : [address] t ? ? S - Ast 24 U/L 14-36 U/L Final [place] (Sgot) [facility] Hospital L ab (Internal) : [address] 04/10/2019 RBC BLD - Aniso occasional ? Final No rth Morpholog Country y, Blood Hospital Lab (Internal) : [address] 04/10/2019 Culture UR - Final microbiolog ? Final [place] (Bascom y results Countr y Count), Hospital Lab Urine (Internal) : [address] 03/14/2019 CBC W/ BLD High Wbc 12.8 5.0-10.0 Final Nort h Auto Diff 10*3/uL 10*3/uL Count Hospital L ab (Internal) : [address] [place] ? ? BLD - Rbc 4.16 4.10-5.30 Final [place] 10*6/uL 10*6/uL [facility] Hospital L ab (Internal) : [address] [place] ? ? BLD Low Hgb 11.8 g/dL 12.0-16.0 Final Nort h g/dL [facility] Hospital L ab (Internal) : [address] [place] ? ? BLD Low Hct 36.4 % 37.0-47.0 Final [facility] Hospital L ab (Internal) : [address] ? ? BLD - Mcv 87.5 fL 80.0-96.0 Final [facility] Hospital L ab (Internal) : [address] ? ? BLD - Mch 28.4 pg 26.0-32.0 Final [facility] Hospital L ab (Internal) : [address] [place] ? ? BLD - Mchc 32.4 g/dL 31.0-35.0 Final Nort h g/dL [facility] Hospital L ab (Internal) : [address] [place] ? ? BLD - Rdw 13.8 % 11.5-14.5 Final [facility] Hospital L ab (Internal) : [address] ? ? BLD - Plt 360 10*3/uL 130-450 Final Nort h 10*3/uL [facility] Hospital L ab (Internal) : [address] [place] ? ? BLD - Anc 9.09 ? Final [place] 10*3/uL [facility] Hospital L ab (Internal) : [address] ? ? BLD - Neutro 70.7 % 40.0-75.0 Final [facility] Hospital L ab (Internal) : [address] ? ? BLD Low Lymph 18.6 % 20.0-50.0 Final [facility] Hospital L ab (Internal) : [address] ? ? BLD - Gratiot 7.9 % 2.0-10.0 Final [facility] Hospital L ab (Internal) : [address] t ? ? BLD - Eos 1.6 % 1.0-6.0 % Final [facility] L ab (Internal) : [address] t ? ? BLD - Baso 0.7 % 0.0-1.0 % Final [facility] L ab (Internal) : [address] t ? ? BLD - Ig 0.5 % 0.0-0.9 % Final [facility] L ab (Internal) : [address] t 03/14/2019 Urinalysi UR - UA-col yellow pale Final No rth s, or yellow [facility] Dipstick, Hospita l Lab Reflex (Internal) : Micro [address] t ? ? UR ABNORMAL UA-mercy hazy clear Final [facility] L ab (Internal) : [address] t ? ? UR - UA-spe 1.020 1.003-1.[address] [facility] L ab (Internal) : [address] t ? ? UR - UA-pH 6.0 [pH] 4.6-8.0 Final [place] [pH] [facility] L ab (Internal) : [address] t ? ? UR ABNORMAL UA-malissa trace negative Final [facility] L ab (Internal) : [address] t ? ? UR ABNORMAL UA-nit positive negative Final [facility] L ab (Internal) : [address] t ? ? UR - UA-pro negative negative Final [facility] Hospital L ab (Internal) : [address] t ? ? UR - UA-glu trace negative Final [facility] L ab (Internal) : [address] t ? ? UR - UA-ket negative negative Final [facility] L ab (Internal) : [address] t ? ? UR - UA-uro normal normal Final [facility] Hospital L ab (Internal) : [address] t ? ? UR - UA-agustín negative negative Final [place] [facility] L ab (Internal) : [address] t ? ? UR ABNORMAL UA-blo trace negative Final [place] od [facility] L ab (Internal) : [address] 03/14/2019 Urinalysi UR ABNORMAL UA-WBC 5-10 [hpf] 0-3 [hpf] Final [place] s, [facility] Lab ic (Internal) : [address] t ? ? UR ABNORMAL UA-RBC 3-5 [hpf] 0-2 [hpf] Final N orth [facility] L ab (Internal) : [address] t ? ? UR ABNORMAL UA-andreea many [hpf] none seen Final [place] teria [hpf] [facility] L ab (Internal) : [address] t ? ? UR ABNORMAL UA-epi few [hpf] none seen Final N orth thelial [hpf] [facility] L ab (Internal) : [address] t ? ? UR - UA-muc none seen none seen Final Nor th us [hpf] [hpf] [facility] L ab (Internal) : [address] 03/14/2019 Culture UR - Final microbiolog ? Final [place] (Bascom y results Countr y Count), Hospital Lab Urine (Internal) : [address] 03/14/2019 CMP, S High g/r 338 mg/dL 74-106 Final Nor th Serum or mg/dL [facility] Hospital L ab (Internal) : [address] t ? ? S - Bun 13 mg/dL 7-17 Final [place] mg/dL [facility] L ab (Internal) : [address] t ? ? S - Crea 0.80 mg/dL 0.52-1.04 Final Nor th mg/dL [facility] L ab (Internal) : [address] t ? ? S - Ca 9.1 mg/dL 8.4-10.2 Final [place] mg/dL [facility] L ab (Internal) : [address] t ? ? S Low Na 133 mmol/L 137-145 Final [place] mmol/L [facility] L ab (Internal) : [address] t ? ? S - K 3.5 mmol/L 3.5-5.1 Final [place] mmol/L [facility] L ab (Internal) : [address] t ? ? S Low Cl 95 mmol/L 98-107 Final [place] mmol/L [facility] L ab (Internal) : [address] t ? ? S - Tco2 27.0 mmol/L 22.0-30.0 Final No rth mmol/L [facility] L ab (Internal) : [address] t ? ? S - Tp 7.1 g/dL 6.3-8.2 Final [place] g/dL [facility] L ab (Internal) : [address] t ? ? S Low Alb 3.4 g/dL 3.5-5.0 Final [place] g/dL [facility] L ab (Internal) : [address] t ? ? S - Tbil 0.2 mg/dL 0.2-1.3 Final [place] mg/dL [facility] L ab (Internal) : [address] t ? ? S High Alp 142 U/L 38-126 Final [place] U/L [facility] L ab (Internal) : [address] t ? ? S - Alt 17 U/L 9-52 U/L Final [place] (Sgpt) [facility] L ab (Internal) : [address] t ? ? S - Ast 21 U/L 14-36 U/L Final [place] (Sgot) [facility] L ab (Internal) : [address] 02/04/2019 Prolactin S - Prolac 9.6 NG/mL ? Final [place] , Serum tin [facility] L ab (Internal) : [address] 01/09/2019 CBC W/ BLD - Wbc 8.4 10*3/uL 5.0-10.0 Final [place] Auto Diff 10*3/uL [facility] L ab (Internal) : [address] t ? ? BLD - Rbc 4.11 4.10-5.30 Final [place] 10*6/uL 10*6/uL [facility] L ab (Internal) : [address] t ? ? BLD - Hgb 12.0 g/dL 12.0-16.0 Final Nort h g/dL [facility] L ab (Internal) : [address] t ? ? BLD - Hct 38.9 % 37.0-47.0 Final [facility] Hospital L ab (Internal) : [address] t ? ? BLD - Mcv 94.6 fL 80.0-96.0 Final [facility] L ab (Internal) : [address] t ? ? BLD - Mch 29.2 pg 26.0-32.0 Final [facility] Hospital L ab (Internal) : [address] t ? ? BLD Low Mchc 30.8 g/dL 31.0-35.0 Final Nort h g/dL [facility] L ab (Internal) : [address] t ? ? BLD - Rdw 14.3 % 11.5-14.5 Final [facility] Hospital L ab (Internal) : [address] ? ? BLD - Plt 223 10*3/uL 130-450 Final Nort h 10*3/uL [facility] L ab (Internal) : [address] ? ? BLD - Anc 3.54 ? Final [place] 10*3/uL [facility] L ab (Internal) : [address] t ? ? BLD - Neutro 42.4 % 40.0-75.0 Final [facility] Hospital L ab (Internal) : [address] ? ? BLD - Lymph 44.0 % 20.0-50.0 Final [facility] Hospital L ab (Internal) : [address] ? ? BLD - Gratiot 8.7 % 2.0-10.0 Final [facility] Hospital L ab (Internal) : [address] ? ? BLD - Eos 3.7 % 1.0-6.0 % Final [facility] L ab (Internal) : [address] ? ? BLD High Baso 1.1 % 0.0-1.0 % Final [facility] L ab (Internal) : [address] ? ? BLD - Ig 0.1 % 0.0-0.9 % Final [facility] L ab (Internal) : [address] 01/09/2019 HbA1C BLD High Ha1C 7.8 % 4.0-6.0 % Final Nor th (Hemoglob Country in a1C), Hospital Lab Blood (Internal) : [address] 01/09/2019 CMP, S High g/r 207 mg/dL 74-106 Final [place] Serum or mg/dL [facility] L ab (Internal) : [address] t ? ? S - Bun 7 mg/dL 7-17 Final [place] mg/dL [facility] L [facility] (Internal) : [address] t ? ? S - Crea 0.80 mg/dL 0.52-1.04 Final [facility] mg/dL [facility] L ab (Internal) : [address] t ? ? S - Ca 9.3 mg/dL 8.4-10.2 Final [place] mg/dL [facility] L ab (Internal) : [address] t ? ? S - Na 138 mmol/L 137-145 Final [place] mmol/L [facility] L ab (Internal) : [address] t ? ? S - K 4.5 mmol/L 3.5-5.1 Final [place] mmol/L [facility] L ab (Internal) : [address] t ? ? S - Cl 104 mmol/L 98-107 Final [place] mmol/L [facility] L [facility] (Internal) : [address] t ? ? S - Tco2 26.0 mmol/L 22.0-30.0 Final No rth mmol/L [facility] L ab (Internal) : [address] t ? ? S - Tp 7.3 g/dL 6.3-8.2 Final [place] g/dL [facility] L ab (Internal) : [address] t ? ? S - Alb 3.8 g/dL 3.5-5.0 Final [place] g/dL [facility] L ab (Internal) : [address] t ? ? S - Tbil 0.3 mg/dL 0.2-1.3 Final [place] mg/dL [facility] L ab (Internal) : [address] t ? ? S - Alp 100 U/L 38-126 Final [place] U/L [facility] L ab (Internal) : [address] ? ? S - Alt <10 U/L 9-52 U/L Final [place] (Sgpt) [facility] L ab (Internal) : [address] ? ? S - Ast 21 U/L 14-36 U/L Final [place] (Sgot) [facility] L ab (Internal) : [address] 01/09/2019 TSH, S - Tsh 1.66 0.47-4.68 Final Nor Serum or u[IU]/mL u[IU]/mL [facility] Plasma Hospital L ab (Internal) : [address] 12/13/2018 Lactic S - La 2.1 mmol/L 0.7-2.1 Final N orth Acid, mmol/L [facility] Blood Hospital L ab (Internal) : [address] 12/13/2018 CBC W/ BLD - Wbc 9.4 10*3/uL 5.0-10.0 Final [place] Auto Diff 10*3/uL [facility] L ab (Internal) : [address] ? ? BLD Low Rbc 3.62 4.10-5.30 Final [place] 10*6/uL 10*6/uL [facility] Hospital L ab (Internal) : [address] ? ? BLD Low Hgb 11.1 g/dL 12.0-16.0 [facility] L ab (Internal) : [address] ? ? BLD Low Hct 34.1 % 37.0-47.0 Final [place] % [facility] L ab (Internal) : [address] ? ? BLD - Mcv 94.2 fL 80.0-96.0 Final [place] fL [facility] L ab (Internal) : [address] ? ? BLD - Mch 30.7 pg 26.0-32.0 Final [place] pg [facility] L ab (Internal) : [address] ? ? BLD - Mchc 32.6 g/dL 31.0-35.0 Final Nort h g/dL [facility] L ab (Internal) : [address] ? ? BLD - Rdw 13.2 % 11.5-14.5 Final [facility] % [facility] L ab (Internal) : [address] t ? ? BLD - Plt 146 10*3/uL 130-450 Final Nort h 10*3/uL [facility] L ab (Internal) : [address] 12/13/2018 CMP, S High g/r 311 mg/dL 74-106 Final [place] Serum or mg/dL [facility] L ab (Internal) : [address] t ? ? S - Bun 13 mg/dL 7-17 Final [place] mg/dL [facility] L ab (Internal) : [address] t ? ? S - Crea 1.00 mg/dL 0.52-1.04 Final [facility] mg/dL [facility] L ab (Internal) : [address] t ? ? S - Ca 9.6 mg/dL 8.4-10.2 Final [place] mg/dL [facility] L ab (Internal) : [address] ? ? S Low Na 128 mmol/L 137-145 Final [place] mmol/L [facility] L [facility] (Internal) : [address] t ? ? S - K 4.5 mmol/L 3.5-5.1 Final [place] mmol/L [facility] L [facility] (Internal) : [address] t ? ? S Low Cl 92 mmol/L 98-107 Final [place] mmol/L [facility] L [facility] (Internal) : [address] t ? ? S - Tco2 27.0 mmol/L 22.0-30.0 Final No rth mmol/L [facility] L ab (Internal) : [address] t ? ? S - Tp 6.9 g/dL 6.3-8.2 Final [place] g/dL [facility] L ab (Internal) : [address] t ? ? S - Alb 3.7 g/dL 3.5-5.0 Final [place] g/dL [facility] L ab (Internal) : [address] t ? ? S - Tbil 0.5 mg/dL 0.2-1.3 Final [place] mg/dL [facility] L ab (Internal) : [address] t ? ? S - Alp 97 U/L 38-126 Final [place] U/L [facility] L ab (Internal) : [address] ? ? S - Alt 22 U/L 9-52 U/L Final [place] (Sgpt) [facility] L ab (Internal) : [address] ? ? S - Ast 28 U/L 14-36 U/L Final [place] (Sgot) [facility] L ab (Internal) : [address] 12/13/2018 Culture, BLD - Final microbiolog ? Final [place] Blood 2 y results Countr Hospital L ab (Internal) : [address] 12/13/2018 Different BLD High Polys 84 % 40-75 % Final No rth ial, [facility] Manual, Hospital Lab Blood (Internal) : [address] ? ? BLD - Bands 1 % 0-5 % Final [facility] L ab (Internal) : [address] ? ? BLD Low Lymphs 9 % 20-50 % Final [facility] L ab (Internal) : [address] ? ? BLD - Gratiot 5 % 2-10 % Final [facility] L ab (Internal) : [address] ? ? BLD - Eos 0 % 0-6 % Final [facility] L ab (Internal) : [address] ? ? BLD - Baso 1 % 0-1 % Final [facility] L ab (Internal) : [address] ? ? BLD - Atyp 0 % ? Final [facility] L ab (Internal) : [address] ? ? BLD - Plts, adequate adequate Final [place] [facility] [address] ? ? BLD - RBC normal normal Final [place] Morphol [facility] Hospital L ab (Internal) : [address] ? ? BLD - Giant rare ? Final [place] Plt [facility] L ab (Internal) : [address] 12/13/2018 Neutrophi BLD - Anc-ma 7.95 ? Final No rth l Count, nual 10*3/uL [facility] Lab (Anc), (Internal) : Blood [address] t 12/13/2018 Culture, BLD - Final microbiolog ? Final [place] Blood 1 y results [facility] L ab (Internal) : [address] t 12/13/2018 Rapid Flu NASAL - Final microbiolog ? Final [place] (A+B) y results [facility] L ab (Internal) : [address] t 12/13/2018 Urinalysi UR ABNORMAL UA-col brown pale Final [place] s, or yellow [facility] Dipstick, Hospita l Lab Reflex (Internal) : Micro [address] t ? ? UR ABNORMAL UA-mercy cloudy clear Final [place] ear [facility] L ab (Internal) : [address] t 12/13/2018 Urinalysi UR ABNORMAL UA-WBC 10-25 [hpf] 0-3 [hpf] Final [facility] Microscop Hospita l Lab ic (Internal) : [address] t ? ? UR ABNORMAL UA-RBC >100 [hpf] 0-2 [hpf] Final [facility] L ab (Internal) : [address] t ? ? UR - UA-andreea none seen none seen Final Nor th teria [hpf] [hpf] [facility] L ab (Internal) : [address] t ? ? UR - UA-epi rare [hpf] none seen Final No rth thelial [hpf] [facility] L ab (Internal) : [address] t ? ? UR - UA-muc none seen none seen Final [place] th us [hpf] [hpf] [facility] ab (Internal) : [address] t 12/13/2018 Culture UR - Final microbiolog ? Final [place] (Bascom y results Countr y Count), Hospital Lab Urine (Internal) : [address] 11/19/2018 Cbc BLD High Wbc 16.1 5.0-10.0 Final Nort h 10*3/uL 10*3/uL [facility] L ab (Internal) : [address] t ? ? BLD - Rbc 4.21 4.10-5.30 Final [place] 10*6/uL 10*6/uL [facility] L ab (Internal) : [address] t ? ? BLD - Hgb 12.7 g/dL 12.0-16.0 Final Nort [place] g/dL [facility] Hospital L ab (Internal) : [address] ? ? BLD - Hct 39.1 % 37.0-47.0 Final [place] [facility] L ab (Internal) : [address] ? ? BLD - Mcv 92.9 fL 80.0-96.0 Final [facility] L ab (Internal) : [address] ? ? BLD - Mch 30.2 pg 26.0-32.0 Final [place] pg [facility] L ab (Internal) : [address] ? ? BLD - Mchc 32.5 g/dL 31.0-35.0 Final Nort h g/dL [facility] Hospital L ab (Internal) : [address] ? ? BLD - Rdw 13.4 % 11.5-14.5 Final [facility] Hospital L ab (Internal) : [address] ? ? BLD - Plt 151 10*3/uL 130-450 Final Nort h 10*3/uL [facility] L ab (Internal) : [address] ? ? BLD - Anc 11.48 ? Final [place] 10*3/uL [facility] L ab (Internal) : [address] 11/19/2018 BMP, S High g/r 143 mg/dL 74-106 Final [place] Serum or mg/dL [facility] Plasma Hospital L ab (Internal) : [address] ? ? S High Bun 22 mg/dL 7-17 Final [place] mg/dL [facility] L ab (Internal) : [address] ? ? S - Crea 0.80 mg/dL 0.52-1.04 Final [place] mg/dL [facility] L ab (Internal) : [address] ? ? S - Ca 9.5 mg/dL 8.4-10.2 Final [place] mg/dL [facility] L ab (Internal) : [address] ? ? S - Na 137 mmol/L 137-145 Final [place] mmol/L [facility] L ab (Internal) : [address] ? ? S - K 4.4 mmol/L 3.5-5.1 Final [place] mmol/L [facility] L ab (Internal) : [address] ? ? S - Cl 102 mmol/L 98-107 Final [place] mmol/L [facility] L ab (Internal) : [address] ? ? S - Tco2 28.0 mmol/L 22.0-30.0 Final No rth mmol/L [facility] L ab (Internal) : [address] 11/18/2018 Cbc BLD High Wbc 20.2 5.0-10.0 Final Nort h 10*3/uL 10*3/uL [facility] L ab (Internal) : [address] scarlett ? ? BLD - Rbc 4.25 4.10-5.30 Final [place] 10*6/uL 10*6/uL [facility] L ab (Internal) : [address] ? ? BLD - Hgb 12.8 g/dL 12.0-16.0 Final [place] g/dL [facility] L ab (Internal) : [address] ? ? BLD - Hct 39.7 % 37.0-47.0 Final [place] % [facility] L ab (Internal) : [address] ? ? BLD - Mcv 93.4 fL 80.0-96.0 Final [place] fL [facility] L ab (Internal) : [address] ? ? BLD - Mch 30.1 pg 26.0-32.0 Final [place] pg [facility] L ab (Internal) : [address] ? ? BLD - Mchc 32.2 g/dL 31.0-35.0 Final [facility] g/dL [facility] L ab (Internal) : [address] ? ? BLD - Rdw 13.3 % 11.5-14.5 Final [place] % [facility] L ab (Internal) : [address] ? ? BLD - Plt 148 10*3/uL 130-450 Final Nort [facility] 10*3/uL [facility] L ab (Internal) : [address], [place] t ? ? BLD - Anc 18.85 ? Final [place] 10*3/uL [facility] Hospital L ab (Internal) : [address] 11/18/2018 BMP, S High g/r 421 mg/dL 74-106 Final [place] Serum or mg/dL [facility] Plasma Hospital L ab (Internal) : [address] ? ? S - Bun 15 mg/dL 7-17 Final North mg/dL [facility] L ab (Internal) : [address] ? ? S - Crea 0.70 mg/dL 0.52-1.04 Final [place] mg/dL [facility] L ab (Internal) : [address] ? ? S - Ca 9.2 mg/dL 8.4-10.2 Final [place] mg/dL [facility] L ab (Internal) : [address] ? ? S Low Na 131 mmol/L 137-145 Final [place] mmol/L [facility] L ab (Internal) : [address] ? ? S - K 4.8 mmol/L 3.5-5.1 Final [place] mmol/L [facility] L ab (Internal) : [address] ? ? S - Cl 99 mmol/L 98-107 Final [place] mmol/L [facility] L ab (Internal) : [address] ? ? S - Tco2 22.0 mmol/L 22.0-30.0 Final No rth mmol/L [facility] L ab (Internal) : [address] t 11/18/2018 Magnesium S Low mg 1.5 mg/dL 1.6-2.3 Final [place] , QN, mg/dL [facility] Serum or Hospital Lab Plasma (Internal) : [address] 11/18/2018 TSH, S - Tsh 0.93 0.47-4.68 Final [place] Serum or u[IU]/mL u[IU]/mL [facility] L ab (Internal) : [address] t 11/17/2018 CBC W/ BLD High Wbc 19.1 5.0-10.0 Final Nort h Auto Diff 10*3/uL 10*3/uL Count [facility] L ab (Internal) : [address] ? ? BLD - Rbc 4.40 4.10-5.30 Final [place] 10*6/uL 10*6/uL [facility] Hospital L ab (Internal) : [address] ? ? BLD - Hgb 13.3 g/dL 12.0-16.0 Final Nort h g/dL [facility] L ab (Internal) : [address] ? ? BLD - Hct 41.5 % 37.0-47.0 Final [facility] L ab (Internal) : [address] ? ? BLD - Mcv 94.3 fL 80.0-96.0 Final [facility] L ab (Internal) : [address] ? ? BLD - Mch 30.2 pg 26.0-32.0 Final [facility] L ab (Internal) : [address] ? ? BLD - Mchc 32.0 g/dL 31.0-35.0 Final Nort h g/dL [facility] L ab (Internal) : [address] ? ? BLD - Rdw 13.3 % 11.5-14.5 Final [facility] L ab (Internal) : [address] ? ? BLD - Plt 151 10*3/uL 130-450 Final Nort h 10*3/uL [facility] L ab (Internal) : [address] 11/17/2018 Lactic S High La 3.6 mmol/L 0.7-2.1 Final N orth Acid, mmol/L [facility] L ab (Internal) : [address] 11/17/2018 Different BLD High Polys 78 % 40-75 % Final No rth ial, [facility] Manual, Hospital Lab Blood (Internal) : [address] [place] ? ? BLD - Bands 1 % 0-5 % Final [facility] L ab (Internal) : [address] ? ? BLD Low Lymphs 7 % 20-50 % Final [facility] L ab (Internal) : [address] ? ? BLD High Grat[place] 11 % 2-10 % Final [facility] L ab (Internal) : [address] ? ? BLD - Eos 3 % 0-6 % Final [facility] L ab (Internal) : [address] ? ? BLD - Baso 0 % 0-1 % Final [facility] L ab (Internal) : [address] ? ? BLD - Atyp 0 % ? Final [facility] L ab (Internal) : [address] ? ? BLD - Plts, adequate adequate Final [facility] L ab (Internal) : [address] ? ? BLD - RBC normal normal Final [facility] Hospital L ab (Internal) : [address] 11/17/2018 Neutrophi BLD - Anc-ma 15.07 ? Final No rth l Count, nual 10*3/uL [facility] Lab (Anc), (Internal) : Blood [address] 11/17/2018 CMP, S High g/r 292 mg/dL 74-106 Final Nor [place] Serum or mg/dL [facility] L ab (Internal) : [address] ? ? S - Bun 11 mg/dL 7-17 Final [place] mg/dL [facility] L ab (Internal) : [address] ? ? S - Crea 0.60 mg/dL 0.52-1.04 Final Nor th mg/dL [facility] L ab (Internal) : [address] ? ? S - Ca 9.2 mg/dL 8.4-10.2 Final [place] mg/dL [facility] L ab (Internal) : [address] ? ? S Low Na 135 mmol/L 137-145 Final [place] mmol/L [facility] L ab (Internal) : [address] ? ? S - K 4.1 mmol/L 3.5-5.1 Final [place] mmol/L [facility] L ab (Internal) : [address] ? ? S - Cl 102 mmol/L 98-107 Final [place] mmol/L [facility] L ab (Internal) : [address] t ? ? S Low Tco2 21.0 mmol/L 22.0-30.0 Final No rth mmol/L [facility] Hospital L ab (Internal) : [address] t ? ? S - Tp 7.2 g/dL 6.3-8.2 Final [place] g/dL [facility] L ab (Internal) : [address] ? ? S - Alb 3.8 g/dL 3.5-5.0 Final [place] g/dL [facility] L ab (Internal) : [address] t ? ? S - Tbil 0.6 mg/dL 0.2-1.3 Final [place] mg/dL [facility] L ab (Internal) : [address] ? ? S - Alp 89 U/L 38-126 Final [place] U/L [facility] L ab (Internal) : [address] ? ? S - Alt 15 U/L 9-52 U/L Final [place] (Sgpt) [facility] L ab (Internal) : [address] ? ? S - Ast 19 U/L 14-36 U/L Final [place] (Sgot) [facility] L ab (Internal) : [address] 11/17/2018 Troponin S - Trop <0.06 NG/mL 0.00-0.06 Fin al [place] I, Serum NG/mL [facility] or Plasma Hospita l Lab (Internal) : [address] 11/17/2018 Culture, BLD - Final microbiolog ? Final [place] Blood 1 y results Countr y Hospital L ab (Internal) : [address] 11/17/2018 Culture, BLD - Final microbiolog ? Final [place] Blood 2 y results Countr y Hospital L ab (Internal) : [address] 11/17/2018 Urinalysi UR - UA-col yellow pale Final No rth s, or yellow [facility] Dipstick, Hospita l Lab Reflex (Internal) : Micro [address] ? ? UR ABNORMAL UA-mercy hazy clear Final [place] ear [facility] Hospital L ab (Internal) : [address] ? ? UR - UA-spe 1.025 1.003-1.0 Final [facility] L ab (Internal) : [address] t ? ? UR - UA-pH 5.5 [pH] 4.6-8.0 Final [place] [pH] [facility] L ab (Internal) : [address] t ? ? UR ABNORMAL UA-malissa trace negative Final [place] k [facility] L ab (Internal) : [address] t ? ? UR - UA-nit negative negative Final [facility] (Internal) : [address] t ? ? UR ABNORMAL UA-pro 1+ negative Final [facility] L ab (Internal) : [address] t ? ? UR - UA-glu 2+ negative Final [facility] L ab (Internal) : [address] t ? ? UR ABNORMAL UA-ket 1+ negative Final [facility] ab (Internal) : [address] t ? ? UR ABNORMAL UA-uro positive normal Final [facility] ab (Internal) : [address] t ? ? UR - UA-agustín negative negative Final [facility] ab (Internal) : [address] t ? ? UR ABNORMAL UA-blo trace negative Final [facility] (Internal) : [address] 11/17/2018 Rapid Flu NASAL - Final microbiolog ? Final [place] (A+B) y results [facility] ab (Internal) : [address] 11/17/2018 Urinalysi UR ABNORMAL UA-WBC 10-25 [hpf] 0-3 [hpf] Final [facility], [facility] Lab ic (Internal) : [address] t ? ? UR - UA-RBC 0-2 [hpf] 0-2 [hpf] Final [facility] L ab (Internal) : [address] t ? ? UR ABNORMAL UA-andreea few [hpf] none seen Final N orth teria [hpf] [facility] ab (Internal) : [address] t ? ? UR ABNORMAL UA-epi few [hpf] none seen Final N orth thelial [hpf] [facility] ab (Internal) : [address] ? ? UR ABNORMAL UA-muc rare [hpf] none seen Final [facility] [hpf] [facility] (Internal) : [address] 11/17/2018 Culture UR - Final microbiolog ? Final [facility] ([facility] y results Countr y Count), Hospital Lab Urine (Internal) : [address] 10/25/2018 Drug UR - Thc negative neg (50 Final Nor th Screen, NG/mL NG/mL) [facility] NG/mL Hospital L ab (Internal) : [address] ? ? UR - Pcp negative neg (25 Final [facility] NG/mL) [facility] ab (Internal) : [address] ? ? UR - Seven negative neg (150 Final [facility] NG/mL) [facility] (Internal) : [address] ? ? UR - Met negative neg (500 Final [facility] NG/mL) [facility] L ab (Internal) : [address] ? ? UR - Opi negative neg (100 Final [facility] NG/mL) [facility] ab (Internal) : [address] ? ? UR - Amp negative neg (500 Final [facility] NG/mL) [facility] ab (Internal) : [address] ? ? UR - Bzo negative neg (150 Final [facility] NG/mL) [facility] (Internal) : [address] ? ? UR - Tca negative neg (300 Final [facility] NG/mL) [facility] (Internal) : [address] ? ? UR - Mtd negative neg (200 Final [facility] NG/mL) [facility] (Internal) : [address] ? ? UR - Bar negative neg (200 Final [facility] NG/mL) [facility] (Internal) : [address] ? ? UR ABNORMAL Oxy positive neg (100 Final Nort h NG/mL) [facility] (Internal) : [address] ? ? UR - Ppx negative neg (300 Final North NG/mL) [facility] L ab (Internal) : [address] ? ? UR - Bup negative neg (10 Final [facility] NG/mL) [facility] Hospital L ab (Internal) : [address], [facility] 10/25/2018 Opiates, UR - Codein negative cutoff: Final North Qualitati e-by NG/mL 25 NG/mL Count ry ve, Urine lc-MS/M Hospit al Lab S (Internal) : [address], [place] ? ? UR - Dihydr negative cutoff: Final [facility] ocodein NG/mL 25 NG/mL [facility] e-by Hospital L ab lc-MS/M (Internal ): S [address] [place] ? ? UR - Hydroc negative cutoff: Final North odone-b NG/mL 25 NG/mL [facility] y Hospital L ab lc-MS/M (Internal ): S [address] [place] ? ? UR - Norhyd negative cutoff: Final North rocodon NG/mL 25 NG/mL [facility] e-by Hospital L ab lc-MS/M (Internal ): S [address] [place] [facility] ? ? UR - Hydrom negative cutoff: Final North orphone NG/mL 25 NG/mL [facility] -by Hospital L ab lc-MS/M (Internal ): S [address], [facility] ? ? UR - Oxycod 323 NG/mL cutoff: Final North one-by 25 NG/mL [facility] lc-MS/M Hospital Lab S (Internal) : [address] [place] ? ? UR - Noroxy 389 NG/mL cutoff: Final North codone- 25 NG/mL [facility] by Hospital L ab lc-MS/M (Internal ): S [address], [facility] ? ? UR - Oxymor 205 NG/mL cutoff: Final North phone-b 25 NG/mL [facility] y Hospital L ab lc-MS/M (Internal ): S [address], [facility] ? ? UR - Noroxy 42 NG/mL cutoff: Final North morphon 25 NG/mL [facility] e-by Hospital L ab lc-MS/M (Internal ): S [address] [place] [facility] ? ? UR - Naloxo negative cutoff: Final North ne-by NG/mL 25 NG/mL [facility] lc-MS/M Hospital Lab S (Internal) : [address] [place] [facility] ? ? UR - Morphi negative cutoff: Final North ne-by NG/mL 25 NG/mL [facility] lc-MS/M Hospital Lab S (Internal) : [address] ? ? UR - Opiate positive. ? Final [facility] Hospital Lab etation (Internal ): [address] t 08/02/2018 Creatinin S - Crea 0.70 mg/dL 0.52-1.04 Fin [facility] e, Serum mg/dL [facility] or Plasma Hospita l Lab (Internal) : [address] t 08/02/2018 TSH, S - Tsh 2.40 0.47-4.68 Final [facility] Serum or u[IU]/mL u[IU]/mL [facility] L ab (Internal) : [address] t 08/02/2018 Culture UR - Final microbiolog ? Final [place] ([facility] y results Countr y Count), Hospital Lab Urine (Internal) : [address] 08/02/2018 Urinalysi UR - UA-col yellow pale Final No rth s, or yellow [facility] Lab (Internal) : [address] t ? ? UR ABNORMAL UA-mercy hazy clear Final [facility] Hospital L ab (Internal) : [address] ? ? UR - UA-spe >=1.030 1.003-1.[address] Hospital L ab (Internal) : [address] ? ? UR - UA-pH 5.5 [pH] 4.6-8.0 Final [place] [pH] [facility] Hospital L ab (Internal) : [address] ? ? UR - UA-malissa negative negative Final [facility] L ab (Internal) : [address] t ? ? UR - UA-nit negative negative Final [facility] Hospital L ab (Internal) : [address] t ? ? UR - UA-pro negative negative Final [facility] L ab (Internal) : [address] ? ? UR - UA-glu 1+ negative Final [facility] L ab (Internal) : [address] ? ? UR ABNORMAL UA-ket trace negative Final [facility] L ab (Internal) : [address] ? ? UR - UA-uro normal normal Final North agustín [facility] Hospital L ab (Internal) : [address] ? ? UR - UA-agustín negative negative Final North i [facility] Hospital L ab (Internal) : [address] ? ? UR ABNORMAL UA-blo large negative Final [place] od [facility] Hospital L ab (Internal) : [address] ? ? UR - UA-WBC 0-3 [hpf] 0-3 [hpf] Final Nor th [facility] Hospital L ab (Internal) : [address] ? ? UR ABNORMAL UA-RBC 10-25 [hpf] 0-2 [hpf] Final [facility] L ab (Internal) : [address] ? ? UR - UA-andreea rare [hpf] none seen Final No rth teria [hpf] [facility] L ab (Internal) : [address] ? ? UR - UA-epi rare [hpf] none seen Final No rth thelial [hpf] [facility] L ab (Internal) : [address] ? ? UR ABNORMAL UA-muc few [hpf] none seen Final N orth us [hpf] [facility] Hospital L ab (Internal) : [address] 08/02/2018 Drug UR - Thc negative neg (50 Final Nor th Screen, NG/mL NG/mL) [facility] Urine NG/mL Hospital L ab (Internal) : [address] ? ? UR - Pcp negative neg (25 Final North NG/mL) [facility] L ab (Internal) : [address] ? ? UR - Seven negative neg (150 Final [facility] NG/mL) [facility] L ab (Internal) : [address] ? ? UR - Met negative neg (500 Final [facility] NG/mL) [facility] L ab (Internal) : [address] ? ? UR - Opi negative neg (100 Final [facility] NG/mL) [facility] L ab (Internal) : [address] ? ? UR - Amp negative neg (500 Final [facility] NG/mL) [facility] L ab (Internal) : [address] ? ? UR - Bzo negative neg (150 Final [facility] NG/mL) [facility] (Internal) : [address] ? ? UR - Tca negative neg (300 Final [facility] NG/mL) [facility] ab (Internal) : [address] t ? ? UR - Mtd negative neg (200 Final [facility] NG/mL) [facility] ab (Internal) : [address] ? ? UR - Bar negative neg (200 Final [facility] NG/mL) [facility] ab (Internal) : [address] ? ? UR ABNORMAL Oxy positive neg (100 Final Nort h NG/mL) [facility] ab (Internal) : [address] ? ? UR - Ppx negative neg (300 Final [facility] NG/mL) [facility] (Internal) : [address] ? ? UR - Bup negative neg (10 Final [facility] NG/mL) [facility] (Internal) : [address] 05/29/2018 Drug UR - Thc negative neg (50 Final Nor th Screen, NG/mL NG/mL) [facility] Urine NG/mL Hospital L ab (Internal) : [address] ? ? UR - Pcp negative neg (25 Final [facility] NG/mL) [facility] ab (Internal) : [address] ? ? UR - Seven negative neg (150 Final [facility] NG/mL) [facility] (Internal) : [address] ? ? UR - Met negative neg (500 Final [facility] NG/mL) [facility] (Internal) : [address] ? ? UR - Opi negative neg (100 Final [facility] NG/mL) [facility] (Internal) : [address] ? ? UR - Amp negative neg (500 Final [facility] NG/mL) [facility] (Internal) : [address] ? ? UR - Bzo negative neg (150 Final [facility] NG/mL) [facility] ab (Internal) : [address] ? ? UR - Tca negative neg (300 Final [facility] NG/mL) [facility] (Internal) : [address] ? ? UR - Mtd negative neg (200 Final [facility] NG/mL) [facility] (Internal) : [address] ? ? UR - Bar negative neg (200 Final [facility] NG/mL) [facility] (Internal) : [address] ? ? UR - Oxy negative neg (100 Final [facility] NG/mL) [facility] L ab (Internal) : [address] ? ? UR - Ppx negative neg (300 Final [facility] NG/mL) [facility] ab (Internal) : [address] ? ? UR - Bup negative neg (10 Final [facility] NG/mL) [facility] L ab (Internal) : [address] 04/04/2018 BMP, S High g/r 250 mg/dL 74-106 Final Nor th Serum or mg/dL [facility] L ab (Internal) : [address] ? ? S - Bun 12 mg/dL 7-17 Final [facility] mg/dL [facility] Hospital L ab (Internal) : [address] ? ? S - Crea 0.60 mg/dL 0.52-1.04 Final Nor th mg/dL [facility] Hospital L ab (Internal) : [address] ? ? S - Ca 9.2 mg/dL 8.4-10.2 Final [facility] mg/dL [facility] Hospital L ab (Internal) : [address] ? ? S Low Na 136 mmol/L 137-145 Final [facility] mmol/L [facility] L ab (Internal) : [address] ? ? S - K 4.2 mmol/L 3.5-5.1 Final [facility] mmol/L [facility] L ab (Internal) : [address] ? ? S - Cl 102 mmol/L 98-107 Final [facility] mmol/L [facility] L ab (Internal) : [address] ? ? S - Tco2 26.0 mmol/L 22.0-30.0 Final No rth mmol/L [facility] L ab (Internal) : [address] 04/04/2018 HbA1C BLD High Ha1C 9.4 % 4.0-6.0 % Final Nor th (Hemoglob [facility] in a1C), Hospital Lab Blood (Internal) : [address] 04/04/2018 TSH, S Low Tsh 0.35 0.47-4.68 Final Nor th Serum or u[IU]/mL u[IU]/mL [facility] L ab (Internal) : [address] 01/19/2018 Cbc BLD - Wbc 9.2 10*3/uL 5.0-10.0 Final [place] 10*3/uL [facility] L ab (Internal) : [address] ? ? BLD - Rbc 4.97 4.10-5.30 Final [place] 10*6/uL 10*6/uL [facility] L ab (Internal) : [address], [address] ? ? BLD - Hgb 14.3 g/dL 12.0-16.0 Final Nort h g/dL [facility] L ab (Internal) : [address] ? ? BLD - Hct 45.9 % 37.0-47.0 Final [facility] L ab (Internal) : [address] ? ? BLD - Mcv 92.4 fL 80.0-96.0 Final [facility] L ab (Internal) : [address], [address] ? ? BLD - Mch 28.8 pg 26.0-32.0 Final [facility] L ab (Internal) : [address] ? ? BLD - Mchc 31.2 g/dL 31.0-35.0 [facility] L ab (Internal) : [address], [address] [address] ? ? BLD - Rdw 13.2 % 11.5-14.5 Final [facility] L ab (Internal) : [address], [address] ? ? BLD - Plt 178 10*3/uL 130-450 Final Nort h 10*3/uL [facility] L ab (Internal) : [address] ? ? BLD - Anc 5.22 ? Final [place] 10*3/uL [facility] L ab (Internal) : [address] 01/19/2018 HbA1C BLD High Ha1C 8.7 % 4.0-6.0 % Final Nor th (Hemoglob [facility] in a1C), Hospital Lab Blood (Internal) : [address] 01/19/2018 Lipid S - Chol 140 mg/dL 50-200 Final Nor th Panel, mg/dL [facility] L ab (Internal) : [address] ? ? S High Trig 226 mg/dL 10-150 Final [facility] mg/dL [facility] ab (Internal) : [address] ? ? S Low Hdl 34 mg/dL 40-60 Final [facility] mg/dL [facility] ab (Internal) : [address] ? ? S - Ldl 61 mg/dL 0-130 Final [facility] mg/dL [facility] ab (Internal) : [address] 01/19/2018 CMP, S High g/r 206 mg/dL 74-106 Final Nor th Serum or mg/dL [facility] L ab (Internal) : [address] ? ? S - Bun 11 mg/dL 7-17 Final [facility] mg/dL [facility] ab (Internal) : [address] ? ? S - Crea 0.70 mg/dL 0.52-1.04 Final Nor th mg/dL [facility] ab (Internal) : [address] ? ? S - Ca 9.2 mg/dL 8.4-10.2 Final [facility] mg/dL [facility] ab (Internal) : [address] ? ? S - Na 139 mmol/L 137-145 Final [facility] mmol/L [facility] ab (Internal) : [address] ? ? S - K 4.1 mmol/L 3.5-5.1 Final [facility] mmol/L [facility] (Internal) : [address] ? ? S - Cl 101 mmol/L 98-107 Final [facility] mmol/L [facility] ab (Internal) : [address] ? ? S - Tco2 29.0 mmol/L 22.0-30.0 Final No rth mmol/L [facility] ab (Internal) : [address] ? ? S - Tp 7.1 g/dL 6.3-8.2 Final [facility] g/dL [facility] ab (Internal) : [address] t ? ? S - Alb 4.0 g/dL 3.5-5.0 Final North g/dL [facility] L ab (Internal) : [address] ? ? S - Tbil 0.3 mg/dL 0.2-1.3 Final [place] mg/dL [facility] L ab (Internal) : [address] t ? ? S - Alp 101 U/L 38-126 Final North U/L [facility] L ab (Internal) : [address] ? ? S - Alt 23 U/L 9-52 U/L Final [place] (Sgpt) [facility] L ab (Internal) : [address] t ? ? S - Ast 21 U/L 14-36 U/L Final [place] (Sgot) [facility] L ab (Internal) : [address] t 01/19/2018 Iron, SERUM - Iron 89 ug/dL 37-170 Final Nort h Serum ug/dL [facility] L ab (Internal) : [address] t 01/19/2018 TIBC SERUM - Tibc 371 ug/dL 265-497 Final No rth (Total ug/dL [facility] Iron-bind Hosp[facility] l Lab ing (Internal) : Capacity) [address] uty Serum [address] rt 01/19/2018 Ferritin, S - Ferr 38 NG/mL 11-264 Final N orth Serum or NG/mL [facility] Plasma [facility] L ab (Internal) : [address] t 01/19/2018 Vitamin S - Vit 429.0 pg/mL 239.0-931 Frances [facility] B12, B12 .0 pg/mL [facility] Serum [facility] L ab (Internal) : [address] t 01/19/2018 TSH, S Low Tsh 0.08 0.47-4.68 Final Nor th Serum or u[IU]/mL u[IU]/mL [facility] L ab (Internal) : [address] t 11/24/2017 Culture, UR ? Final microbiolog ? Final [place] Urine y results [facility] L ab (Internal) : [address] t 11/18/2017 Culture, UR ? Final microbiolog ? Final [place] Urine y results [facility] L ab (Internal) : [address] 11/18/2017 Urinalysi UR ABNORMAL UA-WBC >100 [hpf] 0-3 [hpf] Final [place] s, [facility] Microscop [facility] Lab ic (Internal) : [address] t ? ? UR ABNORMAL UA-RBC 5-10 [hpf] 0-2 [hpf] Final [facility] ab (Internal) : [address] t ? ? UR ABNORMAL UA-andreea moderate none seen Final No rth teria [hpf] [hpf] [facility] ab (Internal) : [address] t ? ? UR ABNORMAL UA-epi moderate none seen Final No rth thelial [hpf] [hpf] [facility] ab (Internal) : [address] t ? ? UR ABNORMAL UA-muc moderate none seen Final No rth us [hpf] [hpf] [facility] ab (Internal) : [address] 11/18/2017 Urinalysi UR ? UA-col yellow pale Final No rth s, or yellow [facility] Dipstick, Hospita l Lab Reflex (Internal) : Micro [address] t ? ? UR ABNORMAL UA-mercy hazy clear Final [facility] ab (Internal) : [address] t ? ? UR ? UA-spe 1.015 1.003-1.0 Final [facility] Grav 35 [facility] ab (Internal) : [address] t ? ? UR ? UA-pH 6.5 [pH] 4.6-8.0 Final [place] [pH] [facility] ab (Internal) : [address] t ? ? UR ABNORMAL UA-malissa large negative Final [facility] L ab (Internal) : [address] t ? ? UR ? UA-nit negative negative Final [facility] ab (Internal) : [address] t ? ? UR ABNORMAL UA-pro 1+ negative Final [facility] ab (Internal) : [address] t ? ? UR ? UA-glu 2+ negative Final [facility] ab (Internal) : [address] t ? ? UR ? UA-ket negative negative Final [place] one [facility] Hospital L ab (Internal) : [address] t ? ? UR ABNORMAL UA-uro positive normal Final [facility] Hospital L ab (Internal) : [address] t ? ? UR ? UA-agustín negative negative Final [place] i [facility] Hospital L ab (Internal) : [address] t ? ? UR ABNORMAL UA-blo large negative Final [place] od [facility] Hospital L ab (Internal) : [address] 11/18/2017 Neutrophi BLD ? Anc-ma 16.85 ? Final No rth l Count, nual 10*3/uL [facility] Lab (Anc), (Internal) : Blood [address] 11/18/2017 Different BLD High Polys 76 % 40-75 % Final No rth ial, [facility] Manual, Hospital Lab Blood (Internal) : [address] t ? ? BLD ? Bands 4 % 0-5 % Final [facility] Hospital L ab (Internal) : [address] t ? ? BLD Low Lymphs 10 % 20-50 % Final [facility] Hospital L ab (Internal) : [address] t ? ? BLD ? Gratiot 10 % 2-10 % Final [facility] L ab (Internal) : [address] ? ? BLD ? Eos 0 % 0-6 % Final [facility] L ab (Internal) : [address] ? ? BLD ? Baso 0 % 0-1 % Final [facility] Hospital L ab (Internal) : [address] t ? ? BLD ? Atyp 0 % ? Final [facility] Hospital L ab (Internal) : [address] t ? ? BLD ? Plts, adequate adequate Final [place] Est. [facility] Hospital L ab (Internal) : [address] t ? ? BLD ? RBC normal normal Final [facility] Hospital L ab (Internal) : [address] 11/18/2017 Lipase, S ? Lip 34 U/L 23-300 Final [place] Serum or U/L [facility] Plasma Hospital L ab (Internal) : [address] t 11/18/2017 CMP, S High g/r 291 mg/dL 74-106 Final Nor th Serum or mg/dL [facility] L ab (Internal) : [address] t ? ? S ? Bun 11 mg/dL 7-17 Final [facility] mg/dL [facility] ab (Internal) : [address] t ? ? S ? Crea 0.80 mg/dL 0.52-1.04 Final [facility] th mg/dL [facility] L ab (Internal) : [address] t ? ? S ? Ca 9.3 mg/dL 8.4-10.2 Final [facility] mg/dL [facility] ab (Internal) : [address] t ? ? S Low Na 133 mmol/L 137-145 Final [facility] mmol/L [facility] ab (Internal) : [address] t ? ? S ? K 4.1 mmol/L 3.5-5.1 Final [facility] mmol/L [facility] ab (Internal) : [address] t ? ? S Low Cl 97 mmol/L 98-107 Final [facility] mmol/L [facility] ab (Internal) : [address] ? ? S ? Tco2 23.0 mmol/L 22.0-30.0 Final No rth mmol/L [facility] L ab (Internal) : [address] t ? ? S ? Tp 7.2 g/dL 6.3-8.2 Final [facility] g/dL [facility] ab (Internal) : [address] t ? ? S ? Alb 4.0 g/dL 3.5-5.0 Final [facility] g/dL [facility] ab (Internal) : [address] t ? ? S ? Tbil 0.7 mg/dL 0.2-1.3 Final [facility] mg/dL [facility] ab (Internal) : [address] ? ? S ? Alp 95 U/L 38-126 Final [facility] U/L [facility] ab (Internal) : [address] t ? ? S ?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
--- OUTSIDE RECORDS SUMMARY | 2021-11-22 12:45 | XMS_ITS | Encounter Summary ---
:1950 Author Care Team Providers Name Role Phone Dayana Garcia Primary Care Provider [phone] [facility] OTHER [phone] Katia Aaron, r programmer Unavailable Heber Way MD General Surgeon [phone] Pillo Carter General Surgeon [phone] Reason for Visit Hypoglycemia unawareness due to type 2 d iabetes mellitus; Chronic obstructive lung disease Assessment and Plan 1. Type II diabetes mellitus unc ontrolled 12/04/2019 She agrees to get her labs zakiya wn before Mar 2020. She is scared of [...] well on the Humalog sliding scale, but [facility] worries that she will give up with the intensity. Patient agrees to see if 2 hour p ost prandials look good if she covers ea ch meal at Humalog 18 units. The Tresiba U-200 at 60 units is holdin g her FBS nicely without hypoglycemia. We will discuss all of these glucose readings soon. She knows that she could have a system like Freestyle Jeancarlos but she dec lines. Our nurse case filler will danielaoliva rowleyfreya with her. This chart says Jul 2020 [...] 260 - 290 usually. Refused blood draw. ? Humalog KwikPen (U-100) In sulin 100 unit/mL subcutaneous ? Tresiba FlexTouch U-200 in sulin 200 unit/mL (3 mL) subcutaneous pen 2. Hypoglycemia unawareness due to type 2 diabetes mellitus 09/20/2021 Improved. Discussed. 3. Chronic obstructive lung dise ase 09/20/2021 Unchanged. To see [employer] Professional per [facility] Hospitalist . Referral sent. Recent pneumonia. ? albuterol sulfate HFA 90 m cg/actuation aerosol inhaler 4. Dyspnea on exertion 09/20/2021 Uncontrolled. We fredy matamoros look at the ECHO and send this to [facility] Pulm. ? US, echocardiogram, transt horacic, complete 5. Low back pain 09/20/2021 Unchanged. Not a wilmer gical candidate for the disc disease. ? oxycodone-acetaminophen 5 mg-325 mg tablet ? oxycodone-acetaminophen 5 mg-325 mg tablet ? oxycodone-acetaminophen 5 mg-325 mg tablet Discussion Note: None recorded.Patient educational handouts: No information available. Plan of Care Reminders Provider Appointments Follow up 12/13/2021 Dayana Whaley 40 1:40PM SANTI Garcia ? Return to on or around Jeffery Webster MD, Office 08/31/2022 Board Certified Sleep Physician Lab None ? ? recorded. Referral None ? ? recorded. Procedures None ? ? recorded. Surgeries None ? ? recorded. Imaging US, 09/20/2021 [facility] Echocardiogram, [facility] Radiolo gy Transthoracic, (Internal) Complete Medications Name Start Date ? ? albuterol sulfate HFA 90 mcg/actuation aerosol inhaler ? Inhale 2 puffs every 4 hours by inhalation route as n eeded for 30 days. Ambien 10 mg tablet ? Take 1 tablet every day by oral route at bedtime for 90 days. Aspirin Low Dose 81 mg tablet,delayed release 08/18/20 Take 1 tablet every day by oral [...] BMI Blood Pressure 5 ft 3 in 261 lbs 2 oz 46.3 kg/m2 128/68 mm[Hg] Results Lab Results None recorded. Allergies Code Code System Name Reaction Severity Onset 104739 RxNorm Bactrim Rash Moderate 03/14/2019 Sulfa (Sulfonamide [...] Ureterectomy Information not avai lable Notes: Per [facility] note- left nephro ure terectomy 01/04/2017 Colonoscopy Information not avai lable 08/21/1973 Tubal Ligation Information not avai lable 09/20/2021 US, Echocardiogram, Transthoracic, [facility] Radiology (Internal) Complete [address] [place] [address] (Work Place) Notes: stent placements December [...] Diabetes mellitus (No Information) N/A (No No lcark) Son Kidney stone (No Information) N/A several ove r winter 9 Functional Status No Impairment. Past Encounters 09/20/2021 Type II Diabetes Mellitus Uncontrolled; Hypoglycemia Unawareness Due to Type 2 Diabetes Mellitus; Chronic Obstructive Lung Disease; Dyspnea on Exertion; Low Back Pain GABRIELA Kelly-C: [address] [place] [address], Ph. 08/31/2021 Obstructive Sleep Apnea Syndrome; Period ic Limb Movement Disorder; Psychophysiologic Insomnia; Cramp in Lower Limb Associated with Sleep; Smoker Jeffery Webster MD, Board Certified Sleep Ph ysician: [address] [place], [place] [address] [address], Ph. 08/26/2021 Type II Diabetes Mellitus Uncontrolled; Chronic Obstructive Lung Disease; Spasm; Candidiasis of Vagina DARYL KellyC: [address] [place] [address], Ph. History of Present Illness Note: <div>09/15/21: patient here for follow up Type II DM uncontrolled. Patient currently usingHumalog KwikPen 30 units up to 3 times daily & Tresiba Flex 120 units daily. Patients blood sugar readings in the mornings are: 200-258 in the mornings & afternoons, patient states tests 3 times daily.</div><div>Patient here for follow up COPD. Recent pulmonary consult with Ry Webster MD at [facility] on 08/31/21. Patient to use noninvasive ear or pulse oximetry by continuous overnight monitoring.</div> Review of Systems ? Brief Geriatric ROS Reported By: Patient Respiratory: Respiratory: shortness of br eath Cardiovascular: Cardiovascular: ; rare mild left chest pain that lasts about 20 seconds. Also has right joellen rnal border discomfort that seems to be pleuritic Psychological: Psychological ; sleep proble ms because her CPAP machine got recalled- so she is not using it. With out it she is not sleeping. Now has her machine back Notes: <p>RoS: [facility]: shoulder joint pain, low back pain, Bilat knee pain</p> Physical Exam ? 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 + hydroureterone phrosis Musculoskeletal:: Gait and Station: irregular gait. Joints, Bones, and Muscles: bony deformity, tenderness Neurologic: Mental Status: ; 09/20/[address] cigarettes 10 days ago.Strident in her opposition to having her blood drawn. She refused MRI with contrast on 03/10/2020 alcira segal we wanted to check her creatinine prior to the MRI with contra st.07/30/2020 Recently at [facility] for left LQ abd - pelvic pain. [...]
--- OUTSIDE RECORDS SUMMARY | 2021-11-22 12:45 | XMS_ITS | Encounter Summary ---
:1950 Author Care Team Providers Name Role Phone Dayana Garcia Primary Care Provider [phone] [facility] OTHER [phone] Katia Aaron, manufacturing group leader Unavailable Heber Way MD General Surgeon [phone] Pillo Carter General Surgeon [phone] Reason for Visit 11/10/21: patient here for candidiasis of the vagina Assessment and Plan 1. Candidiasis of vagina 11/10/2021 Recurrent issue. Unc ontrolled. BACK OFF using the Premarin Cream so often as that might be issue. We will get glucose controlled. If she needs it, she will have access to Monistat an d to Diflucan. (The OTC Clortrimazole di dn't work this time. Maybe the Minconazole will work better.) 10/18/2021 New problem, but recurrent. Tr eated with cream and Diflucan pill. ? Monistat 7 2 % vaginal cre am ? Diflucan 200 mg tablet 2. Type II diabetes mellitus unc ontrolled 12/04/2019 [...] well on the Humalog sliding scale, but [facility] worries that she will give up with the intensity. Patient agrees to see if 2 hour p ost prandials look good if she covers ea ch meal at Humalog 18 units. The Tresiba U-200 at 60 units is holdin g her FBS nicely without hypoglycemia. We will discuss all of these glucose readings soon. She knows that she could have a system like [employer] Jeancarlos but she dec lines. Our nurse sample case porter will anne kinney with her. This chart [...] see if she can tolerate this. ? Jardiance 10 mg tablet Discussion Note: None recorded.Patient educational [...] BMI Blood Pressure 5 ft 3 in 258 lbs 16 oz 45.9 kg/m2 124/74 mm[Hg] Results Lab Results None recorded. Allergies Code Code System Name Reaction Severity Onset 372517 RxNorm Bactrim Rash Moderate 03/14/2019 Sulfa (Sulfonamide [...] ? Gastroesophageal Reflux Disease without Active 06/01/20 ? Esophagitis Insomnia Active 08/18/2021 ? Spasm [...] Ureterectomy Information not avai lable Notes: Per [facility] [place] note- left nephro ure terectomy 01/04/2017 Colonoscopy [...] 9 Functional Status No Impairment. Past Encounters 11/10/2021 Candidiasis of Vagina; Type II Diabetes Mellitus Uncontrolled Dayana Garcia PA-C: [address] [place] [id number], Ph. 10/20/2021 Obstructive Sleep Apnea Syndrome; Period ic Limb Movement Disorder; Psychophysiologic Insomnia; Cramp in Lower Limb Associated with Sleep; Smoker Jeffery Webster MD, Board Certified Sleep Ph ysician: [address] [place] [address], Ph. 10/18/2021 Hypoglycemia Unawareness Due to Type 2 D iabetes Mellitus; Chronic Obstructive Lung Disease; Type II Diabetes Mellitus Uncontrolled; Candidiasis of Vagina; Atrophic Vaginitis Dayana Garcia PA-C: [address] [place] [address], Ph. History of Present Illness Note: <div>11/10/21: Patient here for acute visit vaginal itching x 3 weeks. Patient states has discharge but white in color. Patient has tried OTC monit stat and diflucan 200 mg for 3 days is not effective still experiencing symptoms.</div> Review of Systems None recorded. 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 + hydroureterone phrosis Female : External genitalia: ; 022 dry and somewhat shiny labia. No lichen sclerosis noted. Min imal vaginal discharge noted. 11/10/2021 pH of vaginal discharge was normal. Not curdy, but patient reports seeing curdy discharge (Has already used OTC miconazole and used PO Diflucan x at least one day so far..... We will work on her glucose control and follow. BACK OFF using the Premarin Cream so often as that might be issue Musculoskeletal:: Gait and Station: irregular gait. Joints, Bones, and Muscles: bony deformity, tenderness Neurologic: Mental Status: ; 09/20/[address] cigarettes 10 days ago.Strident in her opposition to having her blood drawn. She refused MRI with contrast on 03/10/2020 alcira segal we wanted to check her creatinine prior to the MRI with contra st.07/30/2020 Recently at [facility] for left LQ abd - pelvic [...]
--- OUTSIDE RECORDS SUMMARY | 2021-11-22 12:46 | XMS_ITS | Encounter Summary ---
:1950 Author Care Team Providers Name Role Phone Dayana Steinerchristianaaaron Primary Care Provider [phone] [facility] OTHER [phone] Katia Aaron, outreach counselor Unavailable Heber Way MD General Surgeon [phone] Pillo Carter General Surgeon [phone] Reason for Visit Telehealth - Audio/Phone; Discharge Assessment and Plan 1. Type II diabetes mellitus unc ontrolled 11/14/2019 Patient has questions about if she shoul d switch from Metformin to Glipizide because she heard that is a better alternative. Patient was offered an BICYCLE TECHNICIAN referral and declined. In the end, she was comfortable with staying on Metform in. (Glipizide is a BAD drug for her.) 12/04/2019 She agrees to get her labs [...] well on the Humalog sliding scale, but [facility] worries that she will give up with the intensity. Patient agrees to see if 2 hour p ost prandials look good if she covers ea ch meal at Humalog 18 units. The Tresiba U-200 at 60 units is darinin g her FBS nicely without hypoglycemia. We will discuss all of these glucose readings soon. She knows that she could have a system like [employer] Jeancarlos but she dec lines. Our nurse geriatric case manager will anne kinney with her. This chart says Jul 2020 was last a1C. This patient has refused labs often. We will get this at next visit here if she will allow. This patient needs a MAGNESIUM level at next draw. ? Humalog KwikPen (U-100) In sulin 100 unit/mL subcutaneous ? Tresiba FlexTouch U-200 in sulin 200 unit/mL (3 mL) subcutaneous pen 2. Chronic obstructive lung dise ase 08/26/2021 To see Centerless Grinder Tender per [facility] Hospitalist. Referral sent. Recent pneumonia. ? entertainment usher referral - D ischarged from [facility] about 08/18/2021 for pneumonia. We will send the [address] and the Jul 2021 CT Chest wo contrast. She is on Incruse Ellipta and Duo-Nebs. Currently on a pred taper and finishing Abx. 3. Spasm 08/26/2021 Unchanged. This patie nt needs a MAGNESIUM level at next draw. 4. Candidiasis of vagina 08/26/2021 New problem, but recu rrent. Treated with cream and Diflucan pill. ? fluconazole 200 mg tablet ? clotrimazole 1 % vaginal c ream Discussion Note: None recorded.Patient educational handouts: No information available. Plan of Care Reminders Provider Appointments Follow up 40 12/13/2021 Me roberto carlos Whaley 1:40PM SANTI Garcia ? Return to on or around Jeffery Webster MD, Office 08/31/2022 Board Certified Sleep Physician Lab None recorded. ? ? Referral Centerless Grinder Tender 08/26/2021 Gayle owens Referral Karson [facility] Procedures None recorded. ? ? Surgeries None recorded. ? ? Imaging None recorded. ? ? Medications Name Start Date ? ? albuterol [...] Thompson, binduD Medications Administered None recorded. Vitals None recorded. Results Lab Results None recorded. Allergies Code Code System Name Reaction Severity Onset 943616 RxNorm Bactrim Rash Moderate 03/14/2019 Sulfa (Sulfonamide [...] Ureterectomy Information not avai lable Notes: [place] [facility] [place]- left nephro ure terectomy 01/04/2017 Colonoscopy [...] 9 Functional Status No Impairment. Past Encounters 08/26/2021 Type II Diabetes Mellitus Uncontrolled; Chronic Obstructive Lung Disease; Spasm; Candidiasis of Vagina Dayana Garcia PA-C: [address] [place] [phone], Ph. History of Present Illness Note: <div>08/23/21: patient here for f/u after discharge from [facility] admitted for pneumonia. Patient is willing to followup with entertainment usher as the hopitalist at [facility] wanted. She feels improvement with her breathing.</div><div>
</div><div>She notices vaginal itching.She had prednisone and Antibiotics while inpatient and after discharge. </div><div>
</div><div>She has been doing fairly well on the Humalog sliding scale. The Tresiba U-200 at 60 units is holding her FBS nicely without hypoglycemia. Patient agrees to see if 2 hour post prandials look good if she covers each meal at 18 units. We will discuss all of these glucose readings soon. She knows that she could have a system like [employer] Jeancarlos but she declines. Our nurse geriatric case manager will followup with her.</div><div>
</div><div>She notices that her leg jumps as if in spams often. She has had her arm do the same thing recently.</div><div>
</div><div>This visit was performed virtually using synchronous audio-visual connection via Zoom. As such, the physical examination is necessarily limited. The risks and benefits of the use of this alternative platform were discussed with the patient and or guardian and verbal consent was obtained. My assessment and plans are based on such examination. Further evaluation, including in-person examination, may be needed depending on the response to management or today's recommendation. </div><div>The patient is {{home* in the office}}. </div><div>The provider is {{home in the office*}}.</div><div>
</div><div>The patient has been positively identified and has consented to a video visit.</div><div>
</div><div>The time spent in counseling and coordination of care was </di v><div>
</div><div>
</div><div>I have determined that it was clinically appropriate to deliver health care services to the patient by audio-only teleph one. </div><div>
</div><div>The time spent in counseling and coordination of care was thirty minutes.</div><div>
</div><div>Patient is receiving audio- only care due to: {{Broadband Access / Reliability Concerns Technical Barrier Other than Broadband* Patient Comfort or Preference Clinical Indication Other:}}</div><div>
</div> Review of Systems None recorded. Physical Exam ? Notes: <div>telephone. In Apr 2021 weight was 253.</div>
--- OUTSIDE RECORDS SUMMARY | 2021-11-22 12:46 | XMS_ITS | Encounter Summary ---
:1950 Author Care Team Providers Name Role Phone Dayana Steinerchristianaaaron Primary Care Provider [phone] [facility] OTHER [phone] Katia Aaron, primer charger Unavailable Heber Way MD General Surgeon [phone] Pillo Carter General Surgeon [phone] Reason for Visit SLEEP CLINIC Follow-Up CPAP/BIPAP Therap y Assessment and Plan Assessment Note I provided greater than 40 minutes in th e care of this patient, more than half the time was spent in [id number] counseling. 1. Obstructive sleep apnea syndr ome Mild Obstructive Sleep Apnea s evere in REM, CPAP was tried and failed, residual hypoxemia and no optimal pressure found on CPAP; with frequent nocturnal awakenings despite excellent CPAP compliance: Medical history include COPD, diabetes, GERD and morbid obesity (BMI 40) who presents for CPAP machine malfunction and disrupted nocturnal sleep and worsened daytime fatigue now that she cannot use machine in last couple of months: 04/22/2004: PSG Mild, RDI 7/hr 2003 to 2018: cpap 10cm on outdated mach ine without apap featuer 03/22/18: order new machine AutoBIPAP Imax 16 Maurice 8 PS 4, to reflect titration sleep study results. 06/05/18: AHI reduced to 1.8/hr, there i s increased mask leak and pressure does reach max levels with residual snoring. I suspect this may be more related to mask fit than needing higher pressures. If i ncreasing pressures, mask leak may actua lly get worse along with snoring. Instead I encouraged her to change her masks more frequently. Also showed her how to maintain her machine. Inc flex to 3cm, adju sted straps on mask, and changed light b lue filter (labeled with sharpie which side was up and what direction to insert into machine) and showed her how to wash the dark blue filter during clinic 10/10/18: tx AHI 1.7/hr, continue same pr [...] for suspected neoplasm. advised her to inform rn orthopaedic via recall phone number line that she [...] DME company, sending prescription now for transition. current mask: mirage quattro small ffm masks tried: airfit f20 medium ? noninvasive ear or pulse o ximetry by continuous overnight monitoring (PROC) - [x] Obtain overnight oximetry o n Auto bipap imax 16 maurice 8 ps [...] issues that will be addressed. 5. Smoker Last cig on 08/09/2021 right b efore going to hospital for pna. has not had cig since! when she gets craving she will distract herself I encourage patient to continue abstaini ng from smoking. She is very motivated. She did not express wanting nicotine replacements or any medications to help. She has good social support to do this. ? smoking cessation counseli ng, greater than 3 minutes up to 10 minutes* Discussion Note Remember to always take precautio ns on drowsy driving. If you experience sleepiness while driving, find a safe area to assembler for puller over machine and take a break. Research suggests taking [...] of Care Patient Instructions 1 year follow up Reminders Provider Appointments Follow up 40 12/13/2021 Me roberto carlos Garcia, 1:40PM SANTI ? Return to on or around Jeffery Webster MD, Office 08/31/2022 Board Certified Sleep Physician Lab None ? ? recorded. Referral None ? ? recorded. Procedures Noninvasive 08/31/2021 Relia ble Ear or Pulse Oximetry Respirator y by Continuous Overnight Monitoring (PROC) Surgeries None [...] binduD Medications Administered None recorded. Vitals Height Weight BMI Blood Pressure 5 ft 3 in 257.3 lbs 45.6 kg/m2 128/64 mm[Hg] Results Lab Results None recorded. Allergies Code Code System Name Reaction Severity Onset 291627 RxNorm Bactrim Rash Moderate 03/14/2019 Sulfa (Sulfonamide Itching Mild 2021 Antibiotics) Penicillins Dizziness ? ? ? Nausea ? ? Problems Name Status Onset Date Source ? Type II Diabetes Mellitus Uncontrolled Active 9 ? 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 Mellitus Hypoglycemia Unawareness Due to Type [...] Ureterectomy Information not avai lable Notes: Per [facility] note- left nephro ure terectomy 01/04/2017 Colonoscopy [...] 9 Functional Status No Impairment. Past Encounters 08/31/2021 Obstructive Sleep Apnea Syndrome; Period ic Limb Movement Disorder; Psychophysiologic Insomnia; Cramp in Lower Limb Associated with Sleep; Smoker Jeffery Webster MD, Board Certified Sleep Ph ysician: [address] [place] [phone], Ph. 08/26/2021 Type II Diabetes Mellitus Uncontrolled; Chronic Obstructive Lung Disease; Spasm; Candidiasis of Vagina Daayna Garcia, GABRIELA-C: [address] [place] [phone], Ph. History of Present Illness Note: <p>Renee [...] 8 ps 4cm was made again to [facility]. Last visit on 06/05/18, she was doing well with her new machine, but having trouble with supplies and changing filters and I showed her how to do this.</p&gt ;<div>
</div><p><strong>TODAY: On auto bipap imax 16 maurice 8 ps 4cmh2O via mirage quattro small full face mask </strong></p><p>see A&P for detai ls</p><div>
</div><div>She had hospitalization at the end of July for atypical pneumonia was on supplemental oxygen did use her BiPAP machine in the hospital, reported she was weaned off the oxygen and was not discharged with any oxygen at home. Was told she shouldhave a follow-up with the sleep clinic just for checkup. Reports no issues with using her BiPAP.</ div><div>
</div><div>She actually quit smoking, last cigarette August 09, and has not smoked since. The pneumonia and the breathing problem scared her</div><div>
</div><div>
</div><div>Patient switched insurances has not been able to get supplies from [facility] since. She was not aware to change her insurance with a cane, and did not know that [facility] likely does not take her current insurance [employer]</div><div>
</div>Review of Systems: ROS as noted in the HPI Review of Systems None recorded. Physical Exam ? Notes: <p>GENERAL: </p><div>{{chron ically ill appearing well appearing#}}, appearing {{older than younger than st ated#}} age, no acute distress, {{normal tall lean obese#}} build
HEENT: atraumatic skull, anicteric
RESPIRATORY: qu iet respiration, able to speak in full sentences without dyspnea, no accessor y muscle use,
SKIN: no facial skin rash, no facial skin lesions
PSYCH IATRIC: well groomed, fluent speech, good insight, linear thought process, good eye contact, {{flat balanced#}} affect
NEUROLOGIC: alert, oriented, symmetric facial expression
BP: measured several times, as above</div><div>
</div><d iv>
</div><p><strong>Clinical Data Reviewed:</strong></p><div>< br></div><p>1. </p><div>{{Modified Pediatric [place] Sleepiness Scale Epw orth Sleepiness Scale*}}: 2 out of {{21 due to not driving 24#}}.

2. {{S leep study results not available, requested Unable to obtain sleep study report s No sleep study reports Sleep study results as above.#}}

3. Machine Download Data:
{{Resmed AirSense 10 Auto CPAP Resmed AirSense 10 Auto BIPAP Respironics Dreamstation Auto CPAP Respironics Dreamstatio n Auto BIPAP*}}
PAP Settings: {{Auto BIPAP* CPAP BIPAP}} imax 16 maurice 8 ps 4 CmH2O
Date Range: {{DATE 08/01/2021}} to {{RONALDO E 08/30/2021}}
<strong>Days with Usage >=4 hours: </strong>{ {Over 70 100*}}<strong> %</strong>
<strong>Avg Usage per Day Used: </strong >{{1 2 3 4 5 6 7* 8 9 10}}<strong> Hours </strong>{{0 1#}}<strong> Mi nutes</strong>
Mean/Median Pressure: {{number___ n/a#}} cmh2O< br>90th-tile/95th-tile Pressure: {{number___ 15.5/11.5#}} cmH 2O
{{Median-90th%tile Leak: Leak: Avg Time in Large Leak Daily- #}} {{Not significant Significant leak 34 minutes#}}
<strong>Averag e AHI: </strong>{{enter 3.2#}}<strong> per hour</strong>
{{Normal flow limitation index. * Abnormal flow limitation index.}}
{{Normal vibrato ry snore index. Abnormal vibratory snore index. Abnormal vibratory sn ore index. elevated 35/hr, historically been high#}}
{{Daily details d o not show significant periods at maximum pressure* Daily details show s significant periods at maximum pressure}}

4. {{Lab r esults as outlined. * Labs pending.}}. noted for low Mg at 1.5 in 10/2018. She has an appointment with her primary care later this month and one of the is sues to be addressed is magnesium</div><div>
</di v>
[2021-11-22 12:58] VITALS: BP 180/79; PULSE 93; RESP 18; TEMP 36.8; O2SAT 96
--- NOTE | 2021-11-22 14:36 | ED.GENADUL_ITS ---
Discharge Plan Disposition Patient Disposition: HOME Condition: Stable Discharge Details Clinical Impression: Itching of vagina, Discharge of vagina Primary Care Provider: Dayana Garcia ED Provider: Kimberli Biswas Home Meds and New Rx's Prescriptions: Continued zolpidem [Ambien] 10 mg tablet 10 mg PO QHS 0RF aspirin [Adult Low Dose Aspirin] 81 mg tablet,delayed release (DR/EC) 81 mg PO DAILY 0RF clotrimazole 1 % cream 1 applic topical BID 0RF garlic 1,000 mg capsule 1,000 mg PO DAILY 0RF insulin lispro [Humalog KwikPen Insulin] 100 unit/mL insulin pen 18 unit subcut TID 0RF Incruse Ellipta 62.5 mcg/actuation blister with device 1 inh inhalation DAILY 0RF ipratropium-albuterol 0.5 mg-3 mg(2.5 mg base)/3 mL solution for nebulization 3 ml inhalation Q4H PRN0RF levothyroxine 175 mcg tablet 175 mcg PO DAILY 0RF naloxone [Narcan] 4 mg/actuation spray,non-aerosol 1 spray intranasal Q2M PRN0RF Rx Instructions: spray 1 dose into ONE nostril; alternate nostrils w each dose until help arrives esomeprazole magnesium [Nexium] 40 mg capsule,delayed release(DR/EC) 40 mg PO DAILY 0RF oxycodone-acetaminophen 5-325 mg tablet 2 tab PO TID PRN0RF Tresiba FlexTouch U-200 200 unit/mL (3 mL) insulin pen 60 unit subcut DAILY 0RF Rx Instructions: Internal note: Start with half usual dose and adjust upward slowly every 5 days to fasting glucose of greater than 100 but less than 120. Stiolto Respimat 2.5-2.5 mcg/actuation mist 2 puff inhalation DAILY Qty: 4 12RF Discharge Instructions Additional Instructions: As we discussed, your vaginal pathology screen is pending. I would like to hold off on further treatment until I have these results back to you can treat you as best possible. I will call Jose's cell phone number you provided me as soon as I have these results and we can discuss treatment options. I am also concerned about potential vaginal prolapse as well as chronicity of your symptoms, I would like for you to follow-up with PUBL[facility] DISTRIBUTION CLERK. Number as discussed below, please call to schedule follow-up appointment. If you develop any increase abdominal pain, fever/chills or other new/worsening symptoms please seek care urgently once again. If you do not hear from me by 4pm please call department at [phone] Referrals: Amber Perez MD [ [facility] STAFF PHYSICIAN] - Discharge Data Discharge Date/Time-TO BE ENTERED AT DEPARTURE: 11/22/21 14:30 Medical Decision Making Patient is a pleasant 71 year old female, accompanied by her son, with c/c of vaginal discomfort, itching. She reports she was diagnosed with yeast infection by her primary care. She has taken 3 separate p.o. doses of Diflucan, hand use gjhj-tkd-mbuqxbr medications including Monistat, as well as Premarin cream. She reports that she is not using the Premarin cream currently. She states that despite these efforts, she has continued to have symptoms for the past few weeks. States that today she noticed some bleeding when she wiped and is questioning if this is associated with her itching. Has not had significant discharge. She denies any recent sexual partners. Denies abdominal pain, change in urinary or bowel habits. Denies any back pain. Past surgical unhurt history is pertinent for urinary bladder sling. Also has history of left nephrectomy, hydroureter nephrosis, GI bleed, GERD, COPD, hypertension, sleep apnea, hyperlipidemia, hypothyroidism, diabetes. On exam, patient appears nontoxic. She is hypertensive but also appears quite anxious. She not having any headache or endorsing symptoms of endorgan damage. Abdomen is benign. Lungs are clear, normal cardiac auscultation. Vaginal exam is concerning for vaginal dryness. She does have some excoriations just on the inside of the vaginal vault. No ugo bleeding. Patient does appear to have some tissues prolapse down concerning for vaginal prolapse. This is only able to be visualized with speculum. She is nontender. No significant discharge. There was a scant amount of posterior vaginal vault and this was sent for vaginal pathology as well as STI screening. After having lengthy discussion with the patient regarding her treatment, symptoms and history, I am quite concerned that some of her symptoms may be associated with an overabundance of medication that she has been using both orally as well as topically. I am concerned that she has some vaginitis either associated with this or vaginal dryness. I do feel that the Premarin cream would be an appropriate option for her. Patient does have an appointment to get to and is not able to stay for the results of her pathology. However, she was able to give me a good contact number and we agreed to be in touch via phone as soon as these results are back. In the interim, I did advise that she not apply any further medications to the vaginal area. Advised that she will need follow- up with [facility] DISTRIBUTION CLERK. Patient left she had her appointment, results returned negative for badge Pap screening. STI is pending. Given the longevity and significance of her symptoms, will consult with PUBL[employer] DISTRIBUTION CLERK regarding management. Consulted with Dr. Casillas. She advised contact dermatitis. Recommended Visteral for itching at night, miconazole 2% BID. She also advised that she will see the patient this week in f/u. Called and spoke with patient and her son, Jose, and discussed findings and treatment plan. We discussed risks associatd with Visteral and that this should not be used when active or driving,more before bed. (In the miconazole length. Return precautions were discussed. They will follow-up with PUBL[facility] DISTRIBUTION CLERK. Medications recommended by Dr. New were called into the [facility] General Date/Time Provider Initiated Documentation: 11/22/21 13:00 . Limitations to Documentation: no limitations . Information obtained by: patient, family and RN notes reviewed . History of Present Illness 71 year old F presents to the emergency department with the chief complaint of vaginal itching, vaginal discharge, described as moderate, Quality is described as other (itching, denies any pain), and is localized to the genitals. Patient reports no radiation. Patient started experiencing this week(s) and it has been constant. improves with No relieving factors improve symptom(s), No exacerbating factors reported . Patient notes no other symptoms.. Patient did receive the following treatments prior to arrival, other (monostat, premarin, Diflucan (x3), OTC vaginal cream x 7 days) Related Data Home Medications Medication Instructions Recorded Confirmed aspirin 81 mg tablet,delayed 81 mg PO DAILY 09/06/21 11/22/21 release (Adult Low Dose Aspirin) clotrimazole 1 % topical cream 1 applic TOPICAL BID 09/06/21 11/22/21 esomeprazole magnesium 40 mg 40 mg PO DAILY 09/06/21 11/22/21 capsule,delayed release (Nexium) garlic 1,000 mg capsule 1,000 mg PO DAILY cap 09/06/21 11/22/21 insulin degludec 200 unit/mL (3 60 unit SUBCUT DAILY ml 09/06/21 11/22/21 mL) subcutaneous pen (Tresiba FlexTouch U-200 insulin) insulin lispro 100 unit/mL 18 unit SUBCUT TID ml 09/06/21 11/22/21 subcutaneous pen (Humalog KwikPen (U-100) Insulin) ipratropium 0.5 mg-albuterol 3 mg 3 ml INHALATION Q4H PRN 09/06/21 11/22/21 (2.5 mg base)/3 mL nebulization soln levothyroxine 175 mcg tablet 175 mcg PO DAILY 09/06/21 11/22/21 naloxone 4 mg/actuation nasal 1 spray INTRANASAL Q2M PRN 09/06/21 11/22/21 spray (Narcan) oxycodone-acetaminophen 5 mg-325 2 tab PO TID PRN tab 09/06/21 11/22/21 mg tablet umeclidinium 62.5 mcg/actuation 1 inh INHALATION DAILY 09/06/21 11/22/21 blister powder for inhalation (Incruse Ellipta) zolpidem 10 mg tablet (Ambien) 10 mg PO QHS tab 09/06/21 11/22/21 tiotropium 2.5 mcg-olodaterol 2.5 2 puff INHALATION DAILY #4 g 11/12/21 11/22/21 mcg/actuation mist for inhalation (Stiolto Respimat) Previous Rx's Medication Instructions Recorded tiotropium 2.5 mcg-olodaterol 2.5 2 puff INHALATION DAILY #4 g 11/12/21 mcg/actuation mist for inhalation (Stiolto Respimat) Allergies Allergy/AdvReac Type Severity Reaction Status Date / Time Sulfa (Sulfonamide AdvReac Intermediate Rash Verified 11/24/21 15:24 Antibiotics) sulfamethoxazole AdvReac Intermediate Rash Verified 11/24/21 15:24 [From Bactrim] trimethoprim [From Bactrim] AdvReac Intermediate Rash Verified 11/24/21 15:24 Penicillins AdvReac Dizziness/L Verified 11/24/21 15:24 ighthead,na usea General Stated Complaint: PUBLICATIONS DISTRIBUTION CLERK YAHAIRA: 4 Review of Systems Constitutional Constitutional: Reports as per HPI, Denies chills and Denies fever(s) Cardiovascular Cardiovascular: Denies chest pain Respiratory Respiratory: Denies cough Gastrointestinal Gastrointestinal: Denies abdominal pain, Denies change in bowel habits, Denies nausea and Denies vomiting Genitourinary Genitourinary: Reports as per HPI Musculoskeletal Musculoskeletal: Reports as per HPI and Denies back pain Integumentary/Breasts Skin/Breast: Reports as per HPI PFSH All Active Problems Vaginal lesion (Acute) Itching of vagina (Acute) Discharge of vagina (Acute) History of nephrectomy, left (Acute) Onset:10/29/2020 Hypoglycemia unawareness associated with type 2 diabetes mellitus (Acute) Diabetes mellitus with proteinuric diabetic nephropathy (Acute) onset:11/14/2019 Impairment of balance (Acute) onset:03/10/2020 Spasm (Acute) Lower back pain (Acute) Shoulder joint pain (Acute) Kidney stone (Chronic) Hydroureteronephrosis (Acute) onset:08/09/2020 Upper gastrointestinal bleeding (Acute) Onset:04/08/2020 Gastroesophageal reflux disease without esophagitis (Acute) Onset:06/01/2021 COPD (chronic obstructive pulmonary disease) (Chronic) Pneumonia (Acute) Hypertensive disorder (Chronic) 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 Onset:10/29/2020 Hx of tubal ligation 08/21/1973 Family History Father Diabetes Kidney stone Cancer Colon cancer Mother Diabetes Sister Diabetes Kidney stone x1 Cancer Uterine cancer Hypertension Brother Diabetes Hypertension Son Kidney stone Several over the winter Social History Smoking/Tobacco Use Status: Former Tobacco Use tobacco type: cigarettes Quit Date: 08/09/21 Pack-years: 30 Smoking risk assessment performed?: Yes Alcohol Intake: never Drug use: Never Substance use type: does not use Do you feel safe at home: Yes Do you feel safe in your relationship?: Yes Exam Const General: cooperative, healthy appearing, comfortable, no acute distress, well developed and well groomed Nutritional Appearance: well nourished and overweight Orientation: alert and awake Resp Effort & Inspection: normal respiratory effort and no respiratory distress Auscultation: clear to auscultation bilaterally, no rales, no rhonchi and no wheezes Cardio Rate: regular rate Rhythm: regular rhythm Heart Sounds: S1 normal and S2 normal GI Inspection: normal to inspection Palpation: soft, no hepatosplenomegaly, not firm, no guarding, not rigid and nontender Auscultation: normal bowel sounds External Female Exam: normal external appearance (skin appears dry) Speculum Exam - Vagina: abnormal vaginal discharge (minimal) yellow, vagina atrophic, erythematous (some dry, cracked skin), no foreign bodies, no lacerations, No vaginal bleeding and nontender Speculum Exam - Cervix: other (unable to visualize secondary to what appears to be vaginal prolapse) Bimanual Exam- Vagina & Uterus: normal bimanual exam OB/External & Speculum: no foreign bodies and No vaginal bleeding Back/Spine/Pelvis Back: no CVA tenderness Skin General skin exam: no rashes or lesions noted Trauma: no lacerations or abrasions Neuro General: patient alert and patient awake Cognition: normal cognition Speech: speech normal Gait: normal gait Psych Appearance: grossly normal and well kempt Mental Status: mental status grossly normal Speech and Movement: speech and movement normal Course Vital Signs Vital signs: Vital Signs Temperature 36.8 C 11/22/21 12:58 Pulse 93 H 11/22/21 12:58 Respiratory Rate 18 11/22/21 12:58 Blood Pressure 180/79 H 11/22/21 12:58 Pulse Oximetry 96 11/22/21 12:58 Temperature 36.8 C 11/22/21 12:58 Temperature Source Oral 11/22/21 12:58 Pulse 93 H 11/22/21 12:58 Respiratory Rate 18 11/22/21 12:58 Respiratory Effort Non-Labored 11/22/21 13:04 Blood Pressure 180/79 H 11/22/21 12:58 Blood Pressure Position Sitting 11/22/21 12:58 Pulse Oximetry 96 11/22/21 12:58 Pain Level 0 11/22/21 12:58
[2021-11-23 15:12] LABS: Chlamydia Result Negative (Negative); GC Result Negative (Negative)
== END 2021-11-22 14:30 | disposition home or self-care (01) ==
PROVIDERS: Emergency Provider Physician Assistant; PCP Physician Assistant Medical
DX: L29.8 Other pruritus (principal); N89.8 Other specified noninflammatory disorders of vagina
CPT/HCPCS: 87491; 87591; 99284; 87480; 87510; 87660; 99283

== ENCOUNTER 2021-11-24 16:18 | Outpatient (REF) | payer MEDICARE, MEDICAID, SELFPAY ==
--- NOTE | 2021-11-24 16:00 | PAPFT_PTH ---
PATIENT: Renee Mendez LOC: [facility] U#:[id number] AGE/SX: 71/F ROOM: RE11/24/[address]: Yazmin New DO : 1950 BED: DIS: 11/24/2021 SPEC #: [id number] RECD: 11/24/21 18:05 STATUS: LINDA REQ #: [id number] ALESSANDRO: 11/24/21 16:[address]: Yazmin New DEPT: [facility] Cytology RECD BY: Anh Ashley ENTERED: 11/24/21 18:07 SP TYPE: PAPFT OTHR DR: Dayana Garcia Tissues: 1 - CX/ENDOCX FOR PAP SMEARS Procedures: PAP THIN PREP/UVM Screening Comments: [id number]
== END 2021-11-24 16:19 | disposition home or self-care (01) ==
LOC: LBN 16:18
PROVIDERS: PCP Physician Assistant Medical; Visit Provider Obstetrics & Gynecology
DX: Z12.4 Encounter for screening for malignant neoplasm of cervix (principal)
CPT/HCPCS: 88142